=== PATIENT | male | born 1950 | race Caucasian/White ===

== ENCOUNTER 2018-05-08 15:18 | Inpatient (IN) | payer MEDICARE, BC ==
[2018-05-08] MEDS ORDERED: Sodium Chloride 0.9% 10 ML Syringe FLUSH PRN (16:03)
[2018-05-08] MEDS ORDERED: [UNRECOGNIZED DRUG - OTHER] EARBOTH PRN (16:24)
[2018-05-08] MEDS: Sodium Chloride 0.9% 1,000 ML IV SCH (16:36)
[2018-05-08] MEDS: Ketorolac 30 MG/ML SDV IVPUSH PRN (16:36)
[2018-05-08 16:52] LABS: ANION GAP 17.5; CHLORIDE,CL 97 mmol/L (101-111); SODIUM,NA 134 mmol/L (135-145)
[2018-05-08] MEDS: Morphine 2 MG/ML Syringe IVPUSH PRN (19:21)
[2018-05-08] MEDS: Lactulose Soln 10 GM/15 ML 30 ML UD Cup PO SCH (20:33)
--- NOTE | 2018-05-08 21:45 | PCM.HP ---
H&P History of Present Illness - General Date of Service: 05/08/18 Admit Problem/Dx: Admission Diagnosis/Problem Admission Diagnosis/Problem Chest pain on breathing Source of Information: Patient - History of Present Illness Initial Comments - Free Text/Narative: Patient is a 67 year old male admitted due to persistent chest wall pain and ileus. one week ago, patient had a fall in the ice, landed on his left side. supposed to go to ER [facility] but due to long wait, decided to come home to [place] and seen in ER, was noted to have left rib fractures. seen in clinic subsequently, started on pain medication and prophylactic Levaquin. patient then started having right lower quadrant yesterday and noticed too that he has not been having his regular bowel movements, last normal BM was 5 days ago. yesterday, took OTC stool softener and only had 3 small BMs. no melena nor hematochezia. has not been eating well lately as he feels full. no nausea nor vomiting. seen in clinic today. chest ray showed left infltrate and bibasilar pleural effusion. abdomimal xray showed ileus and stools on right side with no signs of bowel obstruction, because of these, was advised admission. Left Back Pain Score (Numeric/FACES): 2 - Related Data Allergies/Adverse Reactions: Allergies Allergy/AdvReac Type Severity Reaction Status Date / Time amoxicillin Allergy Facial Verified 05/04/18 01:02 Swelling Penicillins Allergy Facial Verified 05/04/18 01:02 Swelling tetracycline Allergy Facial Verified 05/08/18 16:14 Swelling Home Medications: Home Meds Multivitamin [Multivitamins] 1 tab PO DAILY 05/04/18 [History] Tamsulosin [Tamsulosin 24 Hr] 0.4 mg PO BEDTIME 05/04/18 [History] atorvaSTATin [Lipitor] 10 mg PO BEDTIME 05/04/18 [History] Cyclobenzaprine [Flexeril] 10 mg PO TID PRN 05/08/18 [History] Hydrocodone/Acetaminophen [Hydrocodon-Acetaminophen 5-325] 2 tab PO Q6HR PRN 07/22 [History] Patient's Own Medication [Ptom] 1 - 2 drop EARBOTH DAILY PRN 05/08/18 [History] Patient's Own Medication [Ptom] 1 tab PO DAILY 05/08/18 [History] levoFLOXacin [Levaquin] 500 mg PO DAILY 05/08/18 [History] Past Medical History HEENT History: Reports: Impaired Vision, Other (See Below) Other HEENT History: chronic sinus congestion Cardiovascular History: Reports: High Cholesterol Genitourinary History: Reports: Prostate Disorder, Other (See Below) Other Genitourinary History: nocturnal frequency Musculoskeletal History: Reports: Fracture, Other (See Below) Other Musculoskeletal History: ribs Endocrine/Metabolic History: Reports: Diabetes, Type II Hematologic History: Reports: Other (See Below) Other Hematologic History: thrombocytopenia - Infectious Disease History Infectious Disease History: Reports: Chicken Pox - Past Surgical History GI Surgical History: Reports: Colonoscopy, Hernia Repair/Other Social & Family History - Family History Family Medical History: Noncontributory - Tobacco Use Smoking Status *Q: Never Smoker Second Hand Smoke Exposure: No - Caffeine Use Caffeine Use: Reports: None - Recreational Drug Use Recreational Drug Use: No H&P Review of Systems - Review of Systems: General: Reports: No Symptoms Pulmonary: Reports: Pleuritic Chest Pain Gastrointestinal: Reports: Abdominal Pain, Constipation, Decreased Appetite Genitourinary: Reports: No Symptoms Musculoskeletal: Reports: No Symptoms Skin: Reports: No Symptoms Exam - Vital Signs Vital Signs: Last Vital Signs Temp 98.8 F 05/08/18 20:13 Pulse 96 05/08/18 20:13 Resp 20 05/08/18 20:13 BP 131/78 05/08/18 20:13 Pulse Ox 97 05/08/18 20:13 Weight: 246 lb - Exam General: Alert, Oriented Lungs: Clear to Auscultation GI/Abdominal Exam: Normal Bowel Sounds, Soft - Patient Data Lab Results Last 24 hrs: Laboratory Results - last 24 hr 05/08/18 05/08/18 Range/Units 16:22 16:22 WBC 11.7 H (5.0-10.0) 10^3/uL RBC 4.64 (4.6-6.2) 10^6/uL Hgb 14.4 (14.0-18.0) g/dL Hct 42.6 (40.0-54.0) % MCV 91.8 (80-100) fL MCH 31.0 (27.0-34.0) pg MCHC 33.8 (33.0-35.0) g/dL Plt Count 142 L (150-450) 10^3/uL Neut % (Auto) 78.3 H (42.2-75.2) % Lymph % (Auto) 6.3 L (20.5-50.1) % [place] % (Auto) 14.2 H (2-8) % Eos % (Auto) 0.9 L (1.0-3.0) % Baso % (Auto) 0.3 (0.0-1.0) % Sodium 134 L (135-145) mmol/L Potassium 4.5 (3.6-5.0) mmol/L Chloride 97 L (101-111) mmol/L Carbon Dioxide 24.0 (21.0-31.0) mmol/L Anion Gap 17.5 BUN 19 H (7-18) mg/dL Creatinine 0.8 (0.6-1.3) mg/dL Est Cr Clr Drug Dosing 112.92 mL/min Estimated GFR (MDRD) > 60 Glucose 128 H (74-105) mg/dL Calcium 9.6 (8.4-10.2) mg/dl Result Diagrams: 05/08/18 16:22 05/08/18 16:22 Problem List Initiated/Reviewed/Updated: Yes Orders Last 24hrs: Active Orders 24 hr Category Date Time Status Patient Status [ADT] Routine ADT 05/08/18 16:04 Active Incentive Spirometry [RT Incentive Spirometry] [RC] Care 05/08/18 16:05 Active Q2HWA Oxygen Therapy [RC] PRN Care 05/08/18 16:04 Active Peripheral IV Care [RC] 09,21 Care 05/08/18 16:05 Active VTE/DVT Education [RC] PER UNIT ROUTINE Care 05/08/18 16:04 Active Vital Signs [RC] Q4H Care 05/08/18 16:04 Active Nothing per Oral Now Diet [DIET] Diet 05/08/18 Dinner Active Cyclobenzaprine [Flexeril] Med 05/08/18 16:24 Active 10 mg PO TID PRN Ketorolac [Toradol] Med 05/08/18 16:14 Active 30 mg IVPUSH Q8H PRN Lactulose [Cephulac] Med 05/08/18 21:00 Active 20 gm PO BID Levofloxacin/Dextrose 5%-Water [Levaquin in D5W 500 MG/ Med 05/09/18 09:00 Active 100 ML] 500 mg Premix Bag 1 bag IV Q24H Morphine Med 05/08/18 18:07 Active 1 mg IVPUSH Q6HR PRN Multivitamins,Therapeutic [Thera] Med 05/09/18 09:00 Active 1 each PO DAILY Patient's Own Medication [Ptom] Med 05/08/18 16:24 Pending DOSE each EARBOTH DAILY PRN Patient's Own Medication [Ptom] Med 05/09/18 09:00 Pending DOSE each PO DAILY Sodium Chloride 0.9% [Normal Saline] 1,000 ml Med 05/08/18 16:15 Active IV ASDIRECTED Sodium Chloride 0.9% [Saline Flush] Med 05/08/18 16:03 Active 10 ml FLUSH ASDIRECTED PRN Tamsulosin [Flomax] Med 05/09/18 09:00 Active 0.4 mg PO DAILY atorvaSTATin [Lipitor] Med 05/09/18 09:00 Active 10 mg PO DAILY Peripheral IV Insertion Adult [OM.PC] Routine Oth 05/08/18 16:03 Ordered Code Status [Resuscitation Status] Routine Resus Stat 05/08/18 16:26 Ordered Medication Orders Atorvastatin Calcium (Lipitor) 10 mg PO DAILY [facility] Cyclobenzaprine HCl (Flexeril) 10 mg PO TID PRN PRN Reason: Muscle Spasm Sodium Chloride (Normal Saline) 1,000 mls @ 125 mls/hr IV ASDIRECTED [facility] Last Admin: 05/08/18 16:36 Dose: 125 mls/hr Levofloxacin/Dextrose 500 mg/ (Premix) 100 mls @ 100 mls/hr IV Q24H [facility] Ketorolac Tromethamine (Toradol) 30 mg IVPUSH Q8H PRN PRN Reason: Pain Stop: 05/13/18 16:14 Last Admin: 05/08/18 16:36 Dose: 30 mg Lactulose (Cephulac) 20 gm PO BID [facility] Last Admin: 05/08/18 20:33 Dose: 20 gm Morphine Sulfate (Morphine) 1 mg IVPUSH Q6HR PRN PRN Reason: Pain Last Admin: 05/08/18 19:21 Dose: 1 mg Multivitamins (Thera) 1 each PO DAILY [facility] Patient Own Medication (Ptom) each PO DAILY [facility] Patient Own Medication (Ptom) each EARBOTH DAILY PRN PRN Reason: Itching Sodium Chloride (Saline Flush) 10 ml FLUSH ASDIRECTED PRN PRN Reason: Keep Vein Open Tamsulosin HCl (Flomax) 0.4 mg PO DAILY [facility] Assessment/Plan Comment:: 1. rib fractures. - no underlying pneumothorax - hydrocodone prescribed outpatient did not help, has not been taking deep breaths. - pain control with IV toradol and IV morphine prn. - incentive spirometry. - change levaquin to IV 2. ileus - NPO - IV fluids : NS 125ml.hr - check BMP and replace electrolytes if needed 3. constipation, - lactulose 4. DVT prophylaxis. - noted slight thrombocytopenia - can still do lovenox and david catalan
[2018-05-09] MEDS: Sodium Chloride 0.9% 1,000 ML IV SCH ×3 (00:08→19:31)
[2018-05-09] MEDS: Morphine 2 MG/ML Syringe IVPUSH PRN ×3 (05:18→19:28)
[2018-05-09] MEDS ORDERED: Patient's Own Medication 1 Each PO SCH (09:00)
[2018-05-09] MEDS: Levofloxacin/Dextrose 5%-Water 500 MG in Premix Bag 1 BAG IV SCH (09:53)
[2018-05-09] MEDS: Cyclobenzaprine 10 MG Tab PO PRN (09:59)
[2018-05-09] MEDS: atorvaSTATin 10 MG Tab PO SCH (10:00)
[2018-05-09] MEDS: Tamsulosin 0.4 MG Cap.ER PO SCH (10:00)
[2018-05-09] MEDS: Multivitamins,Therapeutic Tab PO SCH (10:00)
[2018-05-09] MEDS: Lactulose Soln 10 GM/15 ML 30 ML UD Cup PO SCH (10:00)
[2018-05-09] MEDS: Enoxaparin 40 MG/0.4 ML Syringe SUBCUT SCH (10:01)
[2018-05-09] MEDS: Lidocaine 5% 700 MG Patch TOP SCH (11:38)
[2018-05-09] MEDS ORDERED: Iopamidol 612 MG/ML 100 ML Bottle IVPUSH ONE (13:33)
[2018-05-09] MEDS ORDERED: Morphine 2 MG/ML Syringe IVPUSH ONE (13:40)
--- NOTE | 2018-05-09 15:19 | CT ---
Clinical history: 67-year-old, afebrile 6 foot 5 inch, 246 pound diabetic male with "abdominal distention" who has been on narcotics for left chest (rib fractures) pain. "Normal" CBC. Scan technique: Volume acquisition of data from the abdomen and pelvis obtained without oral contrast but during intravenous infusion 100 cc nonionic Isovue (2 cc/s via injector) while patient was lying supine on the Siemens multi slice scanner [place], [place]. All data archived in the PACS system for storage, reformatting axial/sagittal/coronal planes and study. Interpretation: Abnormal. 1. Several posterior lateral lower left rib fractures with ipsilateral dependent small left pleural effusion and underlying posterior segment left lower lobe atelectasis or infiltrate. Asymmetric elevation right hemidiaphragm (splinting) and underlying atelectasis. 2. Abnormal small bowel pattern i.e. generalized dilatation all of the small bowel loops with scattered differential air-fluid levels and abnormal distention of the stool filled right colon. (Transverse and descending left colon unremarkable; sigmoid diverticulosis) Differential considerations include severe (narcotic-induced) ileus versus mechanical bowel obstruction. 3. Gallbladder distended but without intraluminal stones. Liver, stomach (NG tube), spleen, pancreas, right adrenal gland and kidneys unremarkable (16 mm diameter left adrenal cyst). Prostate gland and seminal vesicles unremarkable. 4. Free intraperitoneal ascitic fluid collected in the dependent pelvis, RLQ, and paracolic gutter behind the colon, on the right. 5. L5 anterolisthesis and signs of chronic severe L5-S1 disc disease. Scattered atheromatous calcifications normal caliber aorta. 6 no pelvic or abdominal mass lesion, mesenteric or retroperitoneal lymphadenopathy, or free intraperitoneal air. CONCLUSION: Abnormal small bowel pattern (see above). Left rib fractures, underlying pleural effusion and bilateral lower lobe atelectasis. Stool concentrated in the right colon. Small volume ascites. Sigmoid diverticulosis.
--- NOTE | 2018-05-09 16:07 | PCM.PN ---
- General Info Date of Service: 05/09/18 Subjective Update: patient has a soft stool this morning. Still feels full in the belly, noticed the distention today. Denies any nausea. Passing gas. No fever. Whenever he sits up, left-sided chest pain still gets aggravated, morphine works better to the Toradol. Occasional right lower quadrant pain as well. - Patient Data Vitals - Most Recent: Last Vital Signs Temp 98.5 F 05/09/18 11:27 Pulse 96 05/09/18 11:27 Resp 18 05/09/18 11:27 BP 138/73 05/09/18 11:27 Pulse Ox 95 05/09/18 11:27 Weight - Most Recent: 246 lb I&O - Last 24 Hours: Intake & Output 05/09/18 05/09/18 05/09/18 06:59 14:59 22:59 Intake Total 926 405 Output Total 275 Balance 651 405 Lab Results Last 24 Hours: Laboratory Results - last 24 hr 05/08/18 05/08/18 Range/Units 16:22 16:22 WBC 11.7 H (5.0-10.0) 10^3/uL RBC 4.64 (4.6-6.2) 10^6/uL Hgb 14.4 (14.0-18.0) g/dL Hct 42.6 (40.0-54.0) % MCV 91.8 (80-100) fL MCH 31.0 (27.0-34.0) pg MCHC 33.8 (33.0-35.0) g/dL Plt Count 142 L (150-450) 10^3/uL Neut % (Auto) 78.3 H (42.2-75.2) % Lymph % (Auto) 6.3 L (20.5-50.1) % [place] % (Auto) 14.2 H (2-8) % Eos % (Auto) 0.9 L (1.0-3.0) % Baso % (Auto) 0.3 (0.0-1.0) % Sodium 134 L (135-145) mmol/L Potassium 4.5 (3.6-5.0) mmol/L Chloride 97 L (101-111) mmol/L Carbon Dioxide 24.0 (21.0-31.0) mmol/L Anion Gap 17.5 BUN 19 H (7-18) mg/dL Creatinine 0.8 (0.6-1.3) mg/dL Est Cr Clr Drug Dosing 112.92 mL/min Estimated GFR (MDRD) > 60 Glucose 128 H (74-105) mg/dL Calcium 9.6 (8.4-10.2) mg/dl Med Orders - Current: Current Medications Atorvastatin Calcium (Lipitor) 10 mg PO DAILY [facility] Last Admin: 05/09/18 10:00 Dose: 10 mg Cyclobenzaprine HCl (Flexeril) 10 mg PO TID PRN PRN Reason: Muscle Spasm Last Admin: 05/09/18 09:59 Dose: 10 mg Enoxaparin Sodium (Lovenox) 40 mg SUBCUT DAILY [facility] Last Admin: 05/09/18 10:01 Dose: 40 mg Sodium Chloride (Normal Saline) 1,000 mls @ 125 mls/hr IV ASDIRECTED [facility] Last Admin: 05/09/18 07:49 Dose: 125 mls/hr Levofloxacin/Dextrose 500 mg/ (Premix) 100 mls @ 100 mls/hr IV Q24H [facility] Last Admin: 05/09/18 09:53 Dose: 100 mls/hr Ketorolac Tromethamine (Toradol) 30 mg IVPUSH Q8H PRN PRN Reason: Pain Stop: 05/13/18 16:14 Last Admin: 05/08/18 16:36 Dose: 30 mg Lidocaine (Lidoderm 5%) 700 mg TOP Q24H [facility] Last Admin: 05/09/18 11:38 Dose: 700 mg Miscellaneous Information (Remove Patch) 0 ea TRDERM Q12H [facility] Morphine Sulfate (Morphine) 1 mg IVPUSH Q6HR PRN PRN Reason: Pain Last Admin: 05/09/18 11:29 Dose: 1 mg Multivitamins (Thera) 1 each PO DAILY [facility] Last Admin: 05/09/18 10:00 Dose: 1 each Senna/Docusate Sodium (Senna Plus) 1 tab PO BID PRN PRN Reason: Constipation Sodium Chloride (Saline Flush) 10 ml FLUSH ASDIRECTED PRN PRN Reason: Keep Vein Open Tamsulosin HCl (Flomax) 0.4 mg PO DAILY [facility] Last Admin: 05/09/18 10:00 Dose: 0.4 mg Discontinued Medications Iopamidol (Isovue-300 (61%)) 100 ml IVPUSH ONETIME ONE Stop: 05/09/18 13:34 Last Admin: 05/09/18 14:10 Dose: 100 ml Lactulose (Cephulac) 20 gm PO BID [facility] Last Admin: 05/09/18 10:00 Dose: 20 gm Morphine Sulfate (Morphine) 1 mg IVPUSH ONETIME ONE Stop: 05/09/18 13:41 Last Admin: 05/09/18 13:53 Dose: 1 mg Patient Own Medication (Ptom) each PO DAILY [facility] Acetic Acid- Hydrocortisone Otic Solution *Own Med* 0 each EARBOTH DAILY PRN PRN Reason: Itching - Exam General: Alert, Oriented Lungs: Clear to Auscultation, Normal Respiratory Effort Cardiovascular: Regular Rate, Regular Rhythm GI/Abdominal Exam: Soft, Other (bowel sounds heard in all 4 quadrants) - My Orders Last 24 Hours: My Active Orders 05/08/18 16:03 Sodium Chloride 0.9% [Saline Flush] 10 ml FLUSH ASDIRECTED PRN Peripheral IV Insertion Adult [OM.PC] Routine 05/08/18 16:04 Patient Status [ADT] Routine Oxygen Therapy [RC] PRN VTE/DVT Education [RC] PER UNIT ROUTINE Vital Signs [RC] Q4H 05/08/18 16:05 Incentive Spirometry [RT Incentive Spirometry] [RC] Q2HWA Peripheral IV Care [RC] 09,21 05/08/18 16:14 Ketorolac [Toradol] 30 mg IVPUSH Q8H PRN 05/08/18 16:15 Sodium Chloride 0.9% [Normal Saline] 1,000 ml IV ASDIRECTED 05/08/18 16:24 Cyclobenzaprine [Flexeril] 10 mg PO TID PRN 05/08/18 16:26 Code Status [Resuscitation Status] Routine 05/08/18 18:07 Morphine 1 mg IVPUSH Q6HR PRN 05/08/18 21:51 DAVID Hose [Antiembolic Hose] [OM.PC] Routine 05/08/18 Dinner Nothing per Oral Now Diet [DIET] 05/09/18 09:00 Enoxaparin [Lovenox] 40 mg SUBCUT DAILY Levofloxacin/Dextrose 5%-Water [Levaquin in D5W 500 MG/100 ML] 500 mg Premix Bag 1 bag IV Q24H Multivitamins,Therapeutic [Thera] 1 each PO DAILY Tamsulosin [Flomax] 0.4 mg PO DAILY atorvaSTATin [Lipitor] 10 mg PO DAILY 05/09/18 10:00 Lidocaine 5% [Lidoderm 5%] 700 mg TOP Q24H 05/09/18 13:13 Communication Order [RC] ROUTINE 05/09/18 14:25 Nasogastric Orogastric Tube Insertion [OM.PC] Routine 05/09/18 15:15 Docusate Sodium/Sennosides [Senna Plus] 1 tab PO BID PRN 05/09/18 22:00 Remove Patch 0 ea TRDERM Q12H - Plan Plan:: 1. left-sided rib fractures with underlying left-sided infiltrates - no underlying pneumothorax - hydrocodone prescribed outpatient did not help, has not been taking deep breaths. - pain control with IV toradol and IV morphine prn. - incentive spirometry. - continueIV Levaquin 2. abdominal distention -CAT scan showing mechanical bowel obstruction, labs done, electrolytes normal range, no fever. - NGT inserted - keep nothing by mouth -Normal saline 125 ml per hour - measure abdominal girth every shift 4. DVT prophylaxis.- can still do lovenox and david hose
[2018-05-09] MEDS ORDERED: Pantoprazole 40 MG in Sodium Chloride 0.9% 100 ML IV ONE (16:22)
[2018-05-10] MEDS: Morphine 2 MG/ML Syringe IVPUSH PRN ×3 (03:35→21:54)
[2018-05-10] MEDS: Sodium Chloride 0.9% 1,000 ML IV SCH ×3 (03:37→21:20)
[2018-05-10 06:42] LABS: ANION GAP 14.9; CHLORIDE,CL 103 mmol/L (101-111); SODIUM,NA 136 mmol/L (135-145)
[2018-05-10] MEDS: Levofloxacin/Dextrose 5%-Water 500 MG in Premix Bag 1 BAG IV SCH (09:32)
[2018-05-10] MEDS: Pantoprazole 40 MG Vial IVPUSH SCH (09:35)
[2018-05-10] MEDS: Cyclobenzaprine 10 MG Tab PO PRN (09:38)
[2018-05-10] MEDS: atorvaSTATin 10 MG Tab PO SCH (09:38)
[2018-05-10] MEDS: Multivitamins,Therapeutic Tab PO SCH (09:38)
[2018-05-10] MEDS: Enoxaparin 40 MG/0.4 ML Syringe SUBCUT SCH (09:38)
[2018-05-10] MEDS: Tamsulosin 0.4 MG Cap.ER PO SCH (09:38)
[2018-05-10] MEDS: Lidocaine 5% 700 MG Patch TOP SCH (10:29)
--- NOTE | 2018-05-10 11:51 | PN ---
DATE: 05/10/2018 SUBJECTIVE: The patient is a 67-year-old gentleman admitted with right lower quadrant pain and left-sided rib fractures, and hospital course is complicated by abdominal distention and possibly ileus induced by the pain medication. The patient is currently on NG tube. This morning, he is feeling slightly better with his abdominal distention, and he had passed some loose stool x6. Otherwise, he denies any chest pain or shortness of breath. LABORATORY DATA: Lab workup this morning: Chem-6: Glucose is 118, BUN is 20. The rest of the panel is unremarkable. OBJECTIVE: Vital Signs: Blood pressure is 139/89, pulse of 92, respirations 20, temperature of 99.6, and saturation is 96% on room air. Heart: Regular rate and rhythm. Lungs: Diminished breath sounds on both bases, but no significant crackles. No wheezing. Abdomen: Still distended but soft. Bowel sounds are hypoactive. Extremities: Negative for any significant pedal edema. No calf tenderness. MEDICATIONS: Reviewed. PLAN: We will continue with his current regimen including the IV Levaquin. He is also still on morphine IV. We will also continue with Protonix; and we will continue with the NG tube, but we will clamp it for about 4 hours; and we will increase his ambulation. [facility] /[id number]
[2018-05-11] MEDS: Cyclobenzaprine 10 MG Tab PO PRN (01:31)
[2018-05-11] MEDS: Sodium Chloride 0.9% 1,000 ML IV SCH ×3 (05:15→23:07)
[2018-05-11] MEDS: Levofloxacin/Dextrose 5%-Water 500 MG in Premix Bag 1 BAG IV SCH (09:35)
[2018-05-11] MEDS: Multivitamins,Therapeutic Tab PO SCH (09:36)
[2018-05-11] MEDS: Lidocaine 5% 700 MG Patch TOP SCH (09:36)
[2018-05-11] MEDS: Tamsulosin 0.4 MG Cap.ER PO SCH (09:36)
[2018-05-11] MEDS: Enoxaparin 40 MG/0.4 ML Syringe SUBCUT SCH (09:36)
[2018-05-11] MEDS: Pantoprazole 40 MG Vial IVPUSH SCH (09:36)
[2018-05-11] MEDS: atorvaSTATin 10 MG Tab PO SCH (09:36)
--- NOTE | 2018-05-11 11:59 | PN ---
DATE: 05/11/2018 SUBJECTIVE: The patient has been doing fairly well. We did clamp his NG tube yesterday for 4 hours, and he tolerated it well. We did restart it again, and we only got 150 residual. Overnight, his NG tube was clamped again. This morning, he is doing well. He has been passing his gas and loose stool, and so far, he has not had any problems with abdominal distention. He still complains of some left-sided rib cage pain, but denies any other complaints. No headache, shortness of breath, nor any other complaints. OBJECTIVE: Vital Signs: Blood pressure is 134/79, pulse 84, respirations 20, temperature of 99.7, and saturations 97%. Heart: Regular rate and rhythm. Normal S1 and S2. No gallops. No rubs. Lungs: Equal bilaterally. No crackles. No wheezing. Abdomen: Still slightly distended, but soft and nontender. Bowel sounds positive. Extremities: Negative for any pedal edema. No calf tenderness. PLAN: We will discontinue the NG tube. We will start him on a clear liquid diet. We will continue with the rest of his management and continue with his activity. [facility] /[id number]
[2018-05-11] MEDS: Morphine 2 MG/ML Syringe IVPUSH PRN (13:40)
[2018-05-12] MEDS: Morphine 2 MG/ML Syringe IVPUSH PRN (03:17)
[2018-05-12] MEDS: Sodium Chloride 0.9% 1,000 ML IV SCH (07:53)
[2018-05-12] MEDS: Ketorolac 30 MG/ML SDV IVPUSH PRN (07:58)
[2018-05-12] MEDS: Pantoprazole 40 MG Vial IVPUSH SCH (08:06)
[2018-05-12] MEDS: Enoxaparin 40 MG/0.4 ML Syringe SUBCUT SCH (09:24)
[2018-05-12] MEDS: Tamsulosin 0.4 MG Cap.ER PO SCH (09:24)
[2018-05-12] MEDS: Multivitamins,Therapeutic Tab PO SCH (09:24)
[2018-05-12] MEDS: atorvaSTATin 10 MG Tab PO SCH (09:24)
[2018-05-12] MEDS: Lidocaine 5% 700 MG Patch TOP SCH (09:24)
[2018-05-12] MEDS: Levofloxacin/Dextrose 5%-Water 500 MG in Premix Bag 1 BAG IV SCH (09:24)
--- NOTE | 2018-05-12 11:55 | PCM.PN ---
- General Info Date of Service: 05/12/18 Admission Dx/Problem (Free Text): Admission Diagnosis/Problem Admission Diagnosis/Problem Chest pain on breathing Subjective Update: Pt seen and examined at the bedside this morning NG tube out Tolerating clear liquid diet no abdominal pain, no nausea, no vomiting having multiple bowel movements, semisolid Patient has no new complaints this morning - Review of Systems General: Reports: No Symptoms HEENT: Reports: No Symptoms Pulmonary: Reports: No Symptoms Cardiovascular: Reports: No Symptoms Gastrointestinal: Denies: Abdominal Pain, Nausea, Vomiting Genitourinary: Reports: No Symptoms Musculoskeletal: Reports: No Symptoms - Patient Data Vitals - Most Recent: Last Vital Signs Temp 37.2 C 05/12/18 07:56 Pulse 78 05/12/18 07:56 Resp 20 05/12/18 07:56 BP 131/86 05/12/18 07:56 Pulse Ox 96 05/12/18 07:56 Weight - Most Recent: 111.584 kg I&O - Last 24 Hours: Intake & Output 05/11/18 05/12/18 05/12/18 22:59 06:59 14:59 Intake Total 390 1245 720 Output Total 200 Balance 190 1245 720 Med Orders - Current: Current Medications Atorvastatin Calcium (Lipitor) 10 mg PO DAILY [facility] Last Admin: 05/12/18 09:24 Dose: 10 mg Cyclobenzaprine HCl (Flexeril) 10 mg PO TID PRN PRN Reason: Muscle Spasm Last Admin: 05/11/18 01:31 Dose: 10 mg Enoxaparin Sodium (Lovenox) 40 mg SUBCUT DAILY [facility] Last Admin: 05/12/18 09:24 Dose: 40 mg Ketorolac Tromethamine (Toradol) 30 mg IVPUSH Q8H PRN PRN Reason: Pain Stop: 05/13/18 16:14 Last Admin: 05/12/18 07:58 Dose: 30 mg Lidocaine (Lidoderm 5%) 700 mg TOP Q24H [facility] Last Admin: 05/12/18 09:24 Dose: 700 mg Miscellaneous Information (Remove Patch) 0 ea TRDERM Q12H [facility] Last Admin: 05/12/18 09:25 Dose: Not Given Morphine Sulfate (Morphine) 1 mg IVPUSH Q6HR PRN PRN Reason: Pain Last Admin: 05/12/18 03:17 Dose: 1 mg Multivitamins (Thera) 1 each PO DAILY [facility] Last Admin: 05/12/18 09:24 Dose: 1 each Pantoprazole Sodium (Protonix Iv) 40 mg IVPUSH DAILY [facility] Last Admin: 05/12/18 08:06 Dose: 40 mg Senna/Docusate Sodium (Senna Plus) 1 tab PO BID PRN PRN Reason: Constipation Senna/Docusate Sodium (Senna Plus) 1 tab PO BID [facility] Sodium Chloride (Saline Flush) 10 ml FLUSH ASDIRECTED PRN PRN Reason: Keep Vein Open Tamsulosin HCl (Flomax) 0.4 mg PO DAILY [facility] Last Admin: 05/12/18 09:24 Dose: 0.4 mg Discontinued Medications Sodium Chloride (Normal Saline) 1,000 mls @ 125 mls/hr IV ASDIRECTED [facility] Last Admin: 05/12/18 07:53 Dose: 125 mls/hr Levofloxacin/Dextrose 500 mg/ (Premix) 100 mls @ 100 mls/hr IV Q24H [facility] Last Admin: 05/12/18 09:24 Dose: 100 mls/hr Pantoprazole Sodium 40 mg/ (Sodium Chloride) 100 mls @ 200 mls/hr IV ONETIME ONE Stop: 05/09/18 16:51 Last Admin: 05/09/18 16:54 Dose: 200 mls/hr Iopamidol (Isovue-300 (61%)) 100 ml IVPUSH ONETIME ONE Stop: 05/09/18 13:34 Last Admin: 05/09/18 14:10 Dose: 100 ml Lactulose (Cephulac) 20 gm PO BID [facility] Last Admin: 05/09/18 10:00 Dose: 20 gm Morphine Sulfate (Morphine) 1 mg IVPUSH ONETIME ONE Stop: 05/09/18 13:41 Last Admin: 05/09/18 13:53 Dose: 1 mg Patient Own Medication (Ptom) each PO DAILY [facility] Acetic Acid- Hydrocortisone Otic Solution *Own Med* 0 each EARBOTH DAILY PRN PRN Reason: Itching - Exam General: Alert, Oriented HEENT: Pupils Equal Neck: Supple Lungs: Clear to Auscultation Cardiovascular: Regular Rate, Regular Rhythm GI/Abdominal Exam: Normal Bowel Sounds, Soft, Non-Tender Extremities: Normal Inspection, Normal Range of Motion Skin: Warm, Dry, Intact - Problem List Review Problem List Initiated/Reviewed/Updated: Yes - My Orders Last 24 Hours: My Active Orders 05/12/18 21:00 Docusate Sodium/Sennosides [Senna Plus] 1 tab PO BID 05/12/18 Lunch Regular Diet [DIET] - Plan Plan:: 1. intestinal obstruction - improving - can advance to Regular Diet As Tolerated - continue when necessary Zofran, pain management 2. rib fracture - stable - continue pain medication as needed 3. DVT prophylaxis - can still do lovenox and david catalan
[2018-05-12] MEDS ORDERED: Acetaminophen 325 MG Tab PO PRN (19:28)
[2018-05-12] MEDS: traMADol 50 MG Tab PO PRN (19:37)
[2018-05-12] MEDS: Cyclobenzaprine 10 MG Tab PO PRN (19:38)
[2018-05-13] MEDS: traMADol 50 MG Tab PO PRN ×2 (06:16→14:24)
[2018-05-13] MEDS: Pantoprazole 40 MG Vial IVPUSH SCH (09:30)
[2018-05-13] MEDS ORDERED: Magnesium Citrate Solution 296 ML Bottle PO ONE (09:44)
[2018-05-13] MEDS: Polyethylene Glycol 3350 Powder 17 GM Packet PO SCH (10:11)
[2018-05-13] MEDS: Lidocaine 5% 700 MG Patch TOP SCH (10:11)
[2018-05-13] MEDS: Tamsulosin 0.4 MG Cap.ER PO SCH (10:15)
[2018-05-13] MEDS: Multivitamins,Therapeutic Tab PO SCH (10:15)
[2018-05-13] MEDS: Enoxaparin 40 MG/0.4 ML Syringe SUBCUT SCH (10:17)
[2018-05-13] MEDS: Cyclobenzaprine 10 MG Tab PO PRN (10:24)
[2018-05-13] MEDS: atorvaSTATin 10 MG Tab PO SCH (10:24)
--- NOTE | 2018-05-13 13:24 | PCM.PN ---
- General Info Date of Service: 05/13/18 Admission Dx/Problem (Free Text): Admission Diagnosis/Problem Admission Diagnosis/Problem Chest pain on breathing Subjective Update: Pt seen and examined at the bedside this morning Tolerating regular diet no abdominal pain, no nausea, no vomiting had a bowel movement last night, small quantity complains of abdominal fullness/mild distension - Review of Systems General: Reports: No Symptoms HEENT: Reports: No Symptoms Pulmonary: Reports: No Symptoms Cardiovascular: Reports: No Symptoms Gastrointestinal: Reports: Other (mild distension, fullness) Genitourinary: Reports: No Symptoms, Urgency Musculoskeletal: Reports: No Symptoms - Patient Data Vitals - Most Recent: Last Vital Signs Temp 37.1 C 05/13/18 12:00 Pulse 80 05/13/18 12:00 Resp 20 05/13/18 12:00 BP 136/80 05/13/18 12:00 Pulse Ox 97 05/13/18 12:00 Weight - Most Recent: 111.584 kg I&O - Last 24 Hours: Intake & Output 05/12/18 05/13/18 05/13/18 22:59 06:59 14:59 Intake Total 520 350 Balance 520 350 Med Orders - Current: Current Medications Acetaminophen (Tylenol) 650 mg PO Q4H PRN PRN Reason: Pain Last Admin: 05/12/18 21:59 Dose: 650 mg Atorvastatin Calcium (Lipitor) 10 mg PO DAILY [facility] Last Admin: 05/13/18 10:24 Dose: 10 mg Cyclobenzaprine HCl (Flexeril) 10 mg PO TID PRN PRN Reason: Muscle Spasm Last Admin: 05/13/18 10:24 Dose: 10 mg Enoxaparin Sodium (Lovenox) 40 mg SUBCUT DAILY [facility] Last Admin: 05/13/18 10:17 Dose: 40 mg Ketorolac Tromethamine (Toradol) 30 mg IVPUSH Q8H PRN PRN Reason: Pain Stop: 05/13/18 16:14 Last Admin: 05/12/18 07:58 Dose: 30 mg Lidocaine (Lidoderm 5%) 700 mg TOP Q24H [facility] Last Admin: 05/13/18 10:11 Dose: 700 mg Miscellaneous Information (Remove Patch) 0 ea TRDERM Q12H [facility] Last Admin: 05/13/18 13:03 Dose: Not Given Morphine Sulfate (Morphine) 1 mg IVPUSH Q6HR PRN PRN Reason: Pain Last Admin: 05/12/18 03:17 Dose: 1 mg Multivitamins (Thera) 1 each PO DAILY [facility] Last Admin: 05/13/18 10:15 Dose: 1 each Pantoprazole Sodium (Protonix Iv) 40 mg IVPUSH DAILY [facility] Last Admin: 05/12/18 08:06 Dose: 40 mg Polyethylene Glycol (Miralax) 17 gm PO DAILY [facility] Last Admin: 05/13/18 10:11 Dose: 17 gm Senna/Docusate Sodium (Senna Plus) 1 tab PO BID PRN PRN Reason: Constipation Senna/Docusate Sodium (Senna Plus) 1 tab PO BID [facility] Last Admin: 05/13/18 10:14 Dose: 1 tab Sodium Chloride (Saline Flush) 10 ml FLUSH ASDIRECTED PRN PRN Reason: Keep Vein Open Tamsulosin HCl (Flomax) 0.4 mg PO DAILY [facility] Last Admin: 05/13/18 10:15 Dose: 0.4 mg Tramadol HCl (Ultram) 50 mg PO Q6H PRN PRN Reason: Pain Last Admin: 05/13/18 06:16 Dose: 50 mg Discontinued Medications Sodium Chloride (Normal Saline) 1,000 mls @ 125 mls/hr IV ASDIRECTED [facility] Last Admin: 05/12/18 07:53 Dose: 125 mls/hr Levofloxacin/Dextrose 500 mg/ (Premix) 100 mls @ 100 mls/hr IV Q24H [facility] Last Admin: 05/12/18 09:24 Dose: 100 mls/hr Pantoprazole Sodium 40 mg/ (Sodium Chloride) 100 mls @ 200 mls/hr IV ONETIME ONE Stop: 05/09/18 16:51 Last Admin: 05/09/18 16:54 Dose: 200 mls/hr Iopamidol (Isovue-300 (61%)) 100 ml IVPUSH ONETIME ONE Stop: 05/09/18 13:34 Last Admin: 05/09/18 14:10 Dose: 100 ml Lactulose (Cephulac) 20 gm PO BID [facility] Last Admin: 05/09/18 10:00 Dose: 20 gm Magnesium Citrate (Citrate Of Magnesia) 296 ml PO ONETIME ONE Stop: 05/13/18 09:45 Last Admin: 05/13/18 10:11 Dose: 296 ml Morphine Sulfate (Morphine) 1 mg IVPUSH ONETIME ONE Stop: 05/09/18 13:41 Last Admin: 05/09/18 13:53 Dose: 1 mg Patient Own Medication (Ptom) each PO DAILY [facility] Acetic Acid- Hydrocortisone Otic Solution *Own Med* 0 each EARBOTH DAILY PRN PRN Reason: Itching - Exam General: Alert, Oriented HEENT: Pupils Equal, Pupils Reactive Lungs: Clear to Auscultation, Normal Respiratory Effort Cardiovascular: Regular Rate, Regular Rhythm GI/Abdominal Exam: Normal Bowel Sounds, Soft, Non-Tender - Problem List Review Problem List Initiated/Reviewed/Updated: Yes - My Orders Last 24 Hours: My Active Orders 05/12/18 19:26 traMADol [Ultram] 50 mg PO Q6H PRN 05/12/18 19:28 Acetaminophen [Tylenol] 650 mg PO Q4H PRN 05/12/18 21:00 Docusate Sodium/Sennosides [Senna Plus] 1 tab PO BID 05/13/18 09:45 Polyethylene Glycol 3350 [MiraLAX] 17 gm PO DAILY 05/13/18 11:43 Abdomen 1V Flat [CR] Routine - Plan Plan:: 1. intestinal obstruction, likely resolved - however patient still has some abdominal fullness/mild distension - check abdominal x ray today - continue regular diet 2. rib fracture - stable - continue tylenol/tramadol pain regimen 3. DVT prophylaxis - can still do lovenox and david hose
--- NOTE | 2018-05-13 14:05 | CR ---
Clinical history: 67-year-old diabetic male with abdominal distention. Interpretation: Abnormal. *Flat and upright films of the abdomen (x4) confirm generalized dilatation of small intestine with multiple differential air-fluid levels typical of mechanical bowel obstruction (absence of gas in the colon or rectum). No foreign body or abdominal soft tissue mass lesion. Asymmetric elevation right hemidiaphragm and apparent bibasilar pleural effusions. Gas in the gastric fundus. No free subdiaphragmatic air. Conclusion: High-grade mechanical SBO. Note: This pattern not typical of diabetic or narcotic-induced "ileus".
[2018-05-13] MEDS ORDERED: Iopamidol 612 MG/ML 100 ML Bottle IVPUSH ONE (21:13)
[2018-05-14] MEDS: Dextrose 5%-0.9% NaCl 1,000 ML IV SCH ×3 (00:19→16:57)
[2018-05-14] MEDS: Pantoprazole 40 MG Vial IVPUSH SCH ×2 (04:57→09:54)
[2018-05-14] MEDS: Polyethylene Glycol 3350 Powder 17 GM Packet PO SCH (09:53)
[2018-05-14] MEDS: atorvaSTATin 10 MG Tab PO SCH (09:53)
[2018-05-14] MEDS: Tamsulosin 0.4 MG Cap.ER PO SCH (09:53)
[2018-05-14] MEDS: Lidocaine 5% 700 MG Patch TOP SCH (09:54)
[2018-05-14] MEDS: Enoxaparin 40 MG/0.4 ML Syringe SUBCUT SCH (09:54)
[2018-05-14] MEDS: Multivitamins,Therapeutic Tab PO SCH (09:54)
[2018-05-14] MEDS ORDERED: Methylnaltrexone 12 MG/0.6 ML SDV SUBCUT ONE (10:00)
[2018-05-14 10:13] LABS: ANION GAP 15.4; CHLORIDE,CL 101 mmol/L (101-111); SODIUM,NA 136 mmol/L (135-145)
[2018-05-14] MEDS ORDERED: Potassium Chloride 20 MEQ in Premix Bag 1 BAG IV ONE (10:28)
--- NOTE | 2018-05-14 11:14 | PCM.PN ---
- General Info Date of Service: 05/14/18 Admission Dx/Problem (Free Text): Admission Diagnosis/Problem Admission Diagnosis/Problem Chest pain on breathing Subjective Update: Pt seen and examined at the bedside this morning Yesterday, repeat imaging showed persistent obstruction and dilated loops of bowel. Patient also complained of some abdominal discomfort in the evening and NG tube was placed and connected to low intermittent suction. This morning, patient feels better with relief of abdominal discomfort. No nausea and vomiting Functional Status: Reports: Pain Controlled - Review of Systems General: Reports: No Symptoms HEENT: Reports: No Symptoms Pulmonary: Reports: No Symptoms Cardiovascular: Reports: No Symptoms Gastrointestinal: Reports: Constipation Genitourinary: Reports: No Symptoms - Patient Data Vitals - Most Recent: Last Vital Signs Temp 37.6 C 05/14/18 08:17 Pulse 77 05/14/18 08:17 Resp 20 05/14/18 08:17 BP 141/88 H 05/14/18 08:17 Pulse Ox 96 05/14/18 08:17 Weight - Most Recent: 111.584 kg I&O - Last 24 Hours: Intake & Output 05/13/18 05/14/18 05/14/18 22:59 06:59 14:59 Intake Total 220 Output Total 300 Balance 220 -300 Lab Results Last 24 Hours: Laboratory Results - last 24 hr 05/14/18 Range/Units 09:45 Sodium 136 (135-145) mmol/L Potassium 3.4 L (3.6-5.0) mmol/L Chloride 101 (101-111) mmol/L Carbon Dioxide 23.0 (21.0-31.0) mmol/L Anion Gap 15.4 BUN 9 (7-18) mg/dL Creatinine 0.7 (0.6-1.3) mg/dL Est Cr Clr Drug Dosing 129.05 mL/min Estimated GFR (MDRD) > 60 Glucose 151 H (74-105) mg/dL Calcium 8.1 L (8.4-10.2) mg/dl Magnesium 1.9 (1.8-2.5) mg/dL Med Orders - Current: Current Medications Acetaminophen (Tylenol) 650 mg PO Q4H PRN PRN Reason: Pain Last Admin: 05/12/18 21:59 Dose: 650 mg Atorvastatin Calcium (Lipitor) 10 mg PO DAILY [facility] Last Admin: 05/14/18 09:53 Dose: Not Given Cyclobenzaprine HCl (Flexeril) 10 mg PO TID PRN PRN Reason: Muscle Spasm Last Admin: 05/13/18 10:24 Dose: 10 mg Enoxaparin Sodium (Lovenox) 40 mg SUBCUT DAILY [facility] Last Admin: 05/14/18 09:54 Dose: 40 mg Dextrose/Sodium Chloride (Dextrose 5%-Normal Saline) 1,000 mls @ 125 mls/hr IV ASDIRECTED [facility] Last Admin: 05/14/18 08:38 Dose: 125 mls/hr Potassium Chloride 20 meq/ (Premix) 100 mls @ 50 mls/hr IV ONETIME ONE Stop: 05/14/18 12:27 Lidocaine (Lidoderm 5%) 700 mg TOP Q24H [facility] Last Admin: 05/14/18 09:54 Dose: 700 mg Miscellaneous Information (Remove Patch) 0 ea TRDERM Q12H [facility] Last Admin: 05/13/18 21:48 Dose: Not Given Morphine Sulfate (Morphine) 1 mg IVPUSH Q6HR PRN PRN Reason: Pain Last Admin: 05/12/18 03:17 Dose: 1 mg Multivitamins (Thera) 1 each PO DAILY [facility] Last Admin: 05/14/18 09:54 Dose: Not Given Pantoprazole Sodium (Protonix Iv) 40 mg IVPUSH DAILY [facility] Last Admin: 05/14/18 09:54 Dose: Not Given Polyethylene Glycol (Miralax) 17 gm PO DAILY [facility] Last Admin: 05/14/18 09:53 Dose: Not Given Senna/Docusate Sodium (Senna Plus) 1 tab PO BID PRN PRN Reason: Constipation Senna/Docusate Sodium (Senna Plus) 1 tab PO BID [facility] Last Admin: 05/14/18 09:54 Dose: Not Given Sodium Chloride (Saline Flush) 10 ml FLUSH ASDIRECTED PRN PRN Reason: Keep Vein Open Tamsulosin HCl (Flomax) 0.4 mg PO DAILY [facility] Last Admin: 05/14/18 09:53 Dose: Not Given Tramadol HCl (Ultram) 50 mg PO Q6H PRN PRN Reason: Pain Last Admin: 05/13/18 14:24 Dose: 50 mg Discontinued Medications Sodium Chloride (Normal Saline) 1,000 mls @ 125 mls/hr IV ASDIRECTED [facility] Last Admin: 05/12/18 07:53 Dose: 125 mls/hr Levofloxacin/Dextrose 500 mg/ (Premix) 100 mls @ 100 mls/hr IV Q24H [facility] Last Admin: 05/12/18 09:24 Dose: 100 mls/hr Pantoprazole Sodium 40 mg/ (Sodium Chloride) 100 mls @ 200 mls/hr IV ONETIME ONE Stop: 05/09/18 16:51 Last Admin: 05/09/18 16:54 Dose: 200 mls/hr Iopamidol (Isovue-300 (61%)) 100 ml IVPUSH ONETIME ONE Stop: 05/09/18 13:34 Last Admin: 05/09/18 14:10 Dose: 100 ml Iopamidol (Isovue-300 (61%)) 100 ml IVPUSH ONETIME ONE Stop: 05/13/18 21:14 Last Admin: 05/13/18 21:27 Dose: 100 ml Ketorolac Tromethamine (Toradol) 30 mg IVPUSH Q8H PRN PRN Reason: Pain Stop: 05/13/18 16:14 Last Admin: 05/12/18 07:58 Dose: 30 mg Lactulose (Cephulac) 20 gm PO BID [facility] Last Admin: 05/09/18 10:00 Dose: 20 gm Magnesium Citrate (Citrate Of Magnesia) 296 ml PO ONETIME ONE Stop: 05/13/18 09:45 Last Admin: 05/13/18 10:11 Dose: 296 ml Methylnaltrexone [place] (Relistor) 12 mg SUBCUT ONETIME ONE Stop: 05/14/18 10:01 Last Admin: 05/14/18 09:57 Dose: 12 mg Morphine Sulfate (Morphine) 1 mg IVPUSH ONETIME ONE Stop: 05/09/18 13:41 Last Admin: 05/09/18 13:53 Dose: 1 mg Patient Own Medication (Ptom) each PO DAILY [facility] Acetic Acid- Hydrocortisone Otic Solution *Own Med* 0 each EARBOTH DAILY PRN PRN Reason: Itching - Exam General: Alert, Oriented HEENT: Pupils Equal, Pupils Reactive Neck: Supple Lungs: Clear to Auscultation Cardiovascular: Regular Rate, Regular Rhythm GI/Abdominal Exam: Abnormal Bowel Sounds - Problem List Review Problem List Initiated/Reviewed/Updated: Yes - My Orders Last 24 Hours: My Active Orders 05/13/18 23:45 Dextrose 5%-0.9% NaCl [Dextrose 5%-Normal Saline] 1,000 ml IV ASDIRECTED 05/13/18 23:59 Nasogastric Orogastric Tube Insertion [OM.PC] Routine 05/14/18 10:19 Abdomen 1V Flat [CR] Routine 05/14/18 10:28 Potassium Chloride [KCL 20 MEQ in Water 100 ML] 20 meq Premix Bag 1 bag IV ONETIME 05/14/18 Breakfast Nothing per Oral Now Diet [DIET] 05/15/18 05:11 BASIC METABOLIC PANEL,BMP [CHEM] AM MAGNESIUM [CHEM] AM - Plan Plan:: 1. intestinal obstruction, persistent - CT scan shows dilated loops of bowel, no transition point, likely ileus - continue NG tube drainage, will recheck NG tube position with abdominal Xray - NPO - IV fluid hydration - PRN pain management as needed - hold oral meds - monitor electrolytes and replenish as needed - will give a trial of Relistor (methylnaltrexone) 2. rib fracture - stable - continue IV based pain regimen 3. Hypokalemia - replenish potassium 4. DVT prophylaxis - can still do lovenox and david hose
--- NOTE | 2018-05-14 11:38 | CR ---
Clinical history: A 67-year-old male recent narcotics use (rib fractures) and abdominal distention. Interpretation: NG tube satisfactorily positioned LUQ. Bibasilar lower lobe atelectasis or infiltrates (asymmetric dependent pleural effusion on the left). Persistent abnormal dilatation of central small bowel loops but there is now gas identified in the normal caliber transverse and sigmoid colon IE some improvement. No foreign body, abdominal mass lesion or pathologic calcification.
[2018-05-15] MEDS: Dextrose 5%-0.9% NaCl 1,000 ML IV SCH ×4 (00:30→23:57)
[2018-05-15 06:49] LABS: ANION GAP 15.3; CHLORIDE,CL 103 mmol/L (101-111); SODIUM,NA 137 mmol/L (135-145)
[2018-05-15] MEDS: Lidocaine 5% 700 MG Patch TOP SCH (08:32)
[2018-05-15] MEDS: Pantoprazole 40 MG Vial IVPUSH SCH (08:32)
[2018-05-15] MEDS: Enoxaparin 40 MG/0.4 ML Syringe SUBCUT SCH (08:32)
[2018-05-15] MEDS ORDERED: Lactulose Soln 10 GM/15 ML 30 ML UD Cup PO PRN (11:22)
[2018-05-15] MEDS ORDERED: Methylnaltrexone 12 MG/0.6 ML SDV SUBCUT ONE (11:24)
--- NOTE | 2018-05-15 11:30 | PCM.PN ---
- General Info Date of Service: 05/15/18 Admission Dx/Problem (Free Text): Admission Diagnosis/Problem Admission Diagnosis/Problem Chest pain on breathing Subjective Update: NO acute events overnight. Reports that he is having bowel movements but stool is only clear liquid and mucus. last bowel movement was around 8pm on 05/14/18. Passing flatus. Afebrile. Ambulating. No other concerns. Functional Status: Reports: Pain Controlled - Review of Systems General: Reports: No Symptoms HEENT: Reports: No Symptoms Pulmonary: Reports: No Symptoms Cardiovascular: Reports: No Symptoms Gastrointestinal: Reports: Constipation, Flatus Genitourinary: Reports: No Symptoms Musculoskeletal: Reports: No Symptoms Skin: Reports: No Symptoms Neurological: Reports: No Symptoms Psychiatric: Reports: No Symptoms - Patient Data Vitals - Most Recent: Last Vital Signs Temp 99.6 F 05/15/18 04:00 Pulse 78 05/15/18 04:00 Resp 20 05/15/18 04:00 BP 130/82 05/15/18 04:00 Pulse Ox 95 05/15/18 04:00 Weight - Most Recent: 246 lb I&O - Last 24 Hours: Intake & Output 05/14/18 05/15/18 05/15/18 22:59 06:59 14:59 Intake Total 1623 957 Output Total 750 900 Balance 873 57 Lab Results Last 24 Hours: Laboratory Results - last 24 hr 05/15/18 Range/Units 06:00 Sodium 137 (135-145) mmol/L Potassium 3.3 L (3.6-5.0) mmol/L Chloride 103 (101-111) mmol/L Carbon Dioxide 22.0 (21.0-31.0) mmol/L Anion Gap 15.3 BUN 5 L (7-18) mg/dL Creatinine 0.6 (0.6-1.3) mg/dL Est Cr Clr Drug Dosing 150.56 mL/min Estimated GFR (MDRD) > 60 Glucose 142 H (74-105) mg/dL Calcium 8.0 L (8.4-10.2) mg/dl Magnesium 1.8 (1.8-2.5) mg/dL Med Orders - Current: Current Medications Enoxaparin Sodium (Lovenox) 40 mg SUBCUT DAILY [facility] Last Admin: 05/15/18 08:32 Dose: 40 mg Dextrose/Sodium Chloride (Dextrose 5%-Normal Saline) 1,000 mls @ 125 mls/hr IV ASDIRECTED [facility] Last Admin: 05/15/18 08:32 Dose: 125 mls/hr Lactulose (Cephulac) 20 gm PO Q4H PRN PRN Reason: Constipation Lidocaine (Lidoderm 5%) 700 mg TOP DAILY@0800 [facility] Last Admin: 05/15/18 08:32 Dose: 700 mg Miscellaneous Information (Remove Patch) 0 ea TRDERM DAILY@2000 [facility] Last Admin: 05/14/18 20:42 Dose: Not Given Morphine Sulfate (Morphine) 1 mg IVPUSH Q6HR PRN PRN Reason: Pain Last Admin: 05/12/18 03:17 Dose: 1 mg Pantoprazole Sodium (Protonix Iv) 40 mg IVPUSH DAILY [facility] Last Admin: 05/15/18 08:32 Dose: 40 mg Sodium Chloride (Saline Flush) 10 ml FLUSH ASDIRECTED PRN PRN Reason: Keep Vein Open Discontinued Medications Acetaminophen (Tylenol) 650 mg PO Q4H PRN PRN Reason: Pain Last Admin: 05/12/18 21:59 Dose: 650 mg Atorvastatin Calcium (Lipitor) 10 mg PO DAILY [facility] Last Admin: 05/14/18 09:53 Dose: Not Given Cyclobenzaprine HCl (Flexeril) 10 mg PO TID PRN PRN Reason: Muscle Spasm Last Admin: 05/13/18 10:24 Dose: 10 mg Sodium Chloride (Normal Saline) 1,000 mls @ 125 mls/hr IV ASDIRECTED [facility] Last Admin: 05/12/18 07:53 Dose: 125 mls/hr Levofloxacin/Dextrose 500 mg/ (Premix) 100 mls @ 100 mls/hr IV Q24H [facility] Last Admin: 05/12/18 09:24 Dose: 100 mls/hr Pantoprazole Sodium 40 mg/ (Sodium Chloride) 100 mls @ 200 mls/hr IV ONETIME ONE Stop: 05/09/18 16:51 Last Admin: 05/09/18 16:54 Dose: 200 mls/hr Potassium Chloride 20 meq/ (Premix) 100 mls @ 50 mls/hr IV ONETIME ONE Stop: 05/14/18 12:27 Last Admin: 05/14/18 12:03 Dose: 50 mls/hr Iopamidol (Isovue-300 (61%)) 100 ml IVPUSH ONETIME ONE Stop: 05/09/18 13:34 Last Admin: 05/09/18 14:10 Dose: 100 ml Iopamidol (Isovue-300 (61%)) 100 ml IVPUSH ONETIME ONE Stop: 05/13/18 21:14 Last Admin: 05/13/18 21:27 Dose: 100 ml Ketorolac Tromethamine (Toradol) 30 mg IVPUSH Q8H PRN PRN Reason: Pain Stop: 05/13/18 16:14 Last Admin: 05/12/18 07:58 Dose: 30 mg Lactulose (Cephulac) 20 gm PO BID [facility] Last Admin: 05/09/18 10:00 Dose: 20 gm Lidocaine (Lidoderm 5%) 700 mg TOP Q24H [facility] Last Admin: 05/14/18 09:54 Dose: 700 mg Magnesium Citrate (Citrate Of Magnesia) 296 ml PO ONETIME ONE Stop: 05/13/18 09:45 Last Admin: 05/13/18 10:11 Dose: 296 ml Methylnaltrexone [place] (Relistor) 12 mg SUBCUT ONETIME ONE Stop: 05/14/18 10:01 Last Admin: 05/14/18 09:57 Dose: 12 mg Miscellaneous Information (Remove Patch) 0 ea TRDERM Q12H [facility] Last Admin: 05/14/18 12:03 Dose: 1 ea Morphine Sulfate (Morphine) 1 mg IVPUSH ONETIME ONE Stop: 05/09/18 13:41 Last Admin: 05/09/18 13:53 Dose: 1 mg Multivitamins (Thera) 1 each PO DAILY [facility] Last Admin: 05/14/18 09:54 Dose: Not Given Patient Own Medication (Ptom) each PO DAILY [facility] Acetic Acid- Hydrocortisone Otic Solution *Own Med* 0 each EARBOTH DAILY PRN PRN Reason: Itching Polyethylene Glycol (Miralax) 17 gm PO DAILY [facility] Last Admin: 05/14/18 09:53 Dose: Not Given Senna/Docusate Sodium (Senna Plus) 1 tab PO BID PRN PRN Reason: Constipation Senna/Docusate Sodium (Senna Plus) 1 tab PO BID [facility] Last Admin: 05/14/18 09:54 Dose: Not Given Tamsulosin HCl (Flomax) 0.4 mg PO DAILY [facility] Last Admin: 05/14/18 09:53 Dose: Not Given Tramadol HCl (Ultram) 50 mg PO Q6H PRN PRN Reason: Pain Last Admin: 05/13/18 14:24 Dose: 50 mg - Exam General: Alert, Oriented HEENT: Pupils Equal, Pupils Reactive, EOMI, Mucous Membr. Moist/[place] Neck: Supple Lungs: Clear to Auscultation, Normal Respiratory Effort Cardiovascular: Regular Rate, Regular Rhythm GI/Abdominal Exam: Normal Bowel Sounds, Soft, Non-Tender, Distended (Male) Exam: Deferred Back Exam: Other (Not indicated) Extremities: Normal Inspection, Normal Range of Motion, Non-Tender, No Pedal Edema, Normal Capillary Refill Skin: Warm, Dry, Intact Neurological: No New Focal Deficit Psy/Mental Status: Alert, Normal Affect, Normal Mood - Problem List & Annotations (1) Constipation due to pain medication SNOMED Code(s): 05954542 Code(s): K59.03 - DRUG INDUCED CONSTIPATION Status: Acute Current Visit: Yes - Problem List Review Problem List Initiated/Reviewed/Updated: Yes - My Orders Last 24 Hours: My Active Orders 05/15/18 11:22 Lactulose [Cephulac] 20 gm PO Q4H PRN 05/15/18 11:24 Methylnaltrexone [Relistor] 12 mg SUBCUT ONETIME ONE - Plan Plan:: 1. intestinal obstruction, persistent - CT scan shows dilated loops of bowel, no transition point, likely ileus - Reports 2 bowel movements yesterday with watery/mucus stools. Passing flatus. - continue NG tube drainage, - NPO - IV fluid hydration - PRN pain management as needed - hold oral meds - monitor electrolytes and replenish as needed - will give second dose of Relistor (methylnaltrexone) - Give lactulose PRN; titrate to 2-3 loose stools daily 2. rib fracture - stable - continue IV based pain regimen 3. Hypokalemia - replenish potassium 4. DVT prophylaxis - can still do lovenox and david hose
[2018-05-15] MEDS: Potassium Chloride 20 MEQ in Premix Bag 1 BAG IV SCH ×2 (12:43→14:42)
[2018-05-15] MEDS: Lactulose Soln 10 GM/15 ML 30 ML UD Cup PO SCH ×3 (13:56→21:12)
[2018-05-16] MEDS: Lactulose Soln 10 GM/15 ML 30 ML UD Cup PO SCH ×5 (00:46→17:52)
[2018-05-16 07:03] LABS: ANION GAP 11.6; CHLORIDE,CL 105 mmol/L (101-111); SODIUM,NA 136 mmol/L (135-145)
[2018-05-16] MEDS: Dextrose 5%-0.9% NaCl 1,000 ML IV SCH ×2 (08:02→16:15)
[2018-05-16] MEDS: Pantoprazole 40 MG Vial IVPUSH SCH (09:06)
[2018-05-16] MEDS: Enoxaparin 40 MG/0.4 ML Syringe SUBCUT SCH (09:06)
[2018-05-16] MEDS: Lidocaine 5% 700 MG Patch TOP SCH (09:06)
[2018-05-16] MEDS ORDERED: diphenhydrAMINE 50 MG/ML SDV IVPUSH PRN (10:02)
--- NOTE | 2018-05-16 10:11 | PCM.PN ---
- General Info Date of Service: 05/16/18 Admission Dx/Problem (Free Text): Admission Diagnosis/Problem Admission Diagnosis/Problem Chest pain on breathing Subjective Update: Reports that he had 4 bowel movements yesterday with lactulose. 2 had regular stool consistency; 2 were watery. 3 bowel movements this morning. Itching of right flank yesterday evening. Noted rash at that side. Otherwise, wondering when he can go home. - Review of Systems General: Reports: No Symptoms HEENT: Reports: No Symptoms Pulmonary: Reports: No Symptoms Cardiovascular: Reports: No Symptoms Gastrointestinal: Reports: Other (Stooling. ) Genitourinary: Reports: No Symptoms Musculoskeletal: Reports: No Symptoms Skin: Reports: Pruritis, Rash Neurological: Reports: No Symptoms Psychiatric: Reports: No Symptoms - Patient Data Vitals - Most Recent: Last Vital Signs Temp 98.6 F 05/16/18 08:00 Pulse 76 05/16/18 08:00 Resp 20 05/16/18 08:00 BP 124/81 05/16/18 08:00 Pulse Ox 94 L 05/16/18 08:00 Weight - Most Recent: 246 lb I&O - Last 24 Hours: Intake & Output 05/15/18 05/16/18 05/16/18 22:59 06:59 14:59 Intake Total 1100 983 Output Total 600 600 Balance 500 383 Lab Results Last 24 Hours: Laboratory Results - last 24 hr 05/16/18 05/16/18 Range/Units 06:05 06:05 WBC 6.7 (5.0-10.0) 10^3/uL RBC 4.22 L (4.6-6.2) 10^6/uL Hgb 12.8 L D (14.0-18.0) g/dL Hct 37.9 L (40.0-54.0) % MCV 89.8 (80-100) fL MCH 30.3 (27.0-34.0) pg MCHC 33.8 (33.0-35.0) g/dL Plt Count 207 (150-450) 10^3/uL Sodium 136 (135-145) mmol/L Potassium 3.6 (3.6-5.0) mmol/L Chloride 105 (101-111) mmol/L Carbon Dioxide 23.0 (21.0-31.0) mmol/L Anion Gap 11.6 BUN 5 L (7-18) mg/dL Creatinine 0.7 (0.6-1.3) mg/dL Est Cr Clr Drug Dosing 129.05 mL/min Estimated GFR (MDRD) > 60 BUN/Creatinine Ratio 7.14 Glucose 132 H (74-105) mg/dL Calcium 8.1 L (8.4-10.2) mg/dl Phosphorus 2.8 (2.5-4.6) mg/dL Albumin 3.2 (3.2-5.5) g/dl Med Orders - Current: Current Medications Diphenhydramine HCl (Benadryl) 25 mg IVPUSH Q6H PRN PRN Reason: Itching Enoxaparin Sodium (Lovenox) 40 mg SUBCUT DAILY [facility] Last Admin: 05/16/18 09:06 Dose: 40 mg Dextrose/Sodium Chloride (Dextrose 5%-Normal Saline) 1,000 mls @ 125 mls/hr IV ASDIRECTED [facility] Last Admin: 05/16/18 08:02 Dose: 125 mls/hr Lactulose (Cephulac) 20 gm PO Q4H [facility] Last Admin: 05/16/18 05:53 Dose: Not Given Lidocaine (Lidoderm 5%) 700 mg TOP DAILY@0800 [facility] Last Admin: 05/16/18 09:06 Dose: 700 mg Miscellaneous Information (Remove Patch) 0 ea TRDERM DAILY@2000 [facility] Last Admin: 05/15/18 21:12 Dose: Not Given Morphine Sulfate (Morphine) 1 mg IVPUSH Q6HR PRN PRN Reason: Pain Last Admin: 05/12/18 03:17 Dose: 1 mg Pantoprazole Sodium (Protonix Iv) 40 mg IVPUSH DAILY [facility] Last Admin: 05/16/18 09:06 Dose: 40 mg Sodium Chloride (Saline Flush) 10 ml FLUSH ASDIRECTED PRN PRN Reason: Keep Vein Open Discontinued Medications Acetaminophen (Tylenol) 650 mg PO Q4H PRN PRN Reason: Pain Last Admin: 05/12/18 21:59 Dose: 650 mg Atorvastatin Calcium (Lipitor) 10 mg PO DAILY [facility] Last Admin: 05/14/18 09:53 Dose: Not Given Cyclobenzaprine HCl (Flexeril) 10 mg PO TID PRN PRN Reason: Muscle Spasm Last Admin: 05/13/18 10:24 Dose: 10 mg Sodium Chloride (Normal Saline) 1,000 mls @ 125 mls/hr IV ASDIRECTED [facility] Last Admin: 05/12/18 07:53 Dose: 125 mls/hr Levofloxacin/Dextrose 500 mg/ (Premix) 100 mls @ 100 mls/hr IV Q24H [facility] Last Admin: 05/12/18 09:24 Dose: 100 mls/hr Pantoprazole Sodium 40 mg/ (Sodium Chloride) 100 mls @ 200 mls/hr IV ONETIME ONE Stop: 05/09/18 16:51 Last Admin: 05/09/18 16:54 Dose: 200 mls/hr Potassium Chloride 20 meq/ (Premix) 100 mls @ 50 mls/hr IV ONETIME ONE Stop: 05/14/18 12:27 Last Admin: 05/14/18 12:03 Dose: 50 mls/hr Potassium Chloride 20 meq/ (Premix) 100 mls @ 50 mls/hr IV Q1H [facility] Stop: 05/15/18 13:59 Last Admin: 05/15/18 14:42 Dose: 50 mls/hr Iopamidol (Isovue-300 (61%)) 100 ml IVPUSH ONETIME ONE Stop: 05/09/18 13:34 Last Admin: 05/09/18 14:10 Dose: 100 ml Iopamidol (Isovue-300 (61%)) 100 ml IVPUSH ONETIME ONE Stop: 05/13/18 21:14 Last Admin: 05/13/18 21:27 Dose: 100 ml Ketorolac Tromethamine (Toradol) 30 mg IVPUSH Q8H PRN PRN Reason: Pain Stop: 05/13/18 16:14 Last Admin: 05/12/18 07:58 Dose: 30 mg Lactulose (Cephulac) 20 gm PO BID [facility] Last Admin: 05/09/18 10:00 Dose: 20 gm Lactulose (Cephulac) 20 gm PO Q4H PRN PRN Reason: Constipation Lidocaine (Lidoderm 5%) 700 mg TOP Q24H [facility] Last Admin: 05/14/18 09:54 Dose: 700 mg Magnesium Citrate (Citrate Of Magnesia) 296 ml PO ONETIME ONE Stop: 05/13/18 09:45 Last Admin: 05/13/18 10:11 Dose: 296 ml Methylnaltrexone [place] (Relistor) 12 mg SUBCUT ONETIME ONE Stop: 05/14/18 10:01 Last Admin: 05/14/18 09:57 Dose: 12 mg Methylnaltrexone [place] (Relistor) 12 mg SUBCUT ONETIME ONE Stop: 05/15/18 11:25 Last Admin: 05/15/18 12:35 Dose: Not Given Miscellaneous Information (Remove Patch) 0 ea TRDERM Q12H [facility] Last Admin: 05/14/18 12:03 Dose: 1 ea Morphine Sulfate (Morphine) 1 mg IVPUSH ONETIME ONE Stop: 05/09/18 13:41 Last Admin: 05/09/18 13:53 Dose: 1 mg Multivitamins (Thera) 1 each PO DAILY [facility] Last Admin: 05/14/18 09:54 Dose: Not Given Patient Own Medication (Ptom) each PO DAILY [facility] Acetic Acid- Hydrocortisone Otic Solution *Own Med* 0 each EARBOTH DAILY PRN PRN Reason: Itching Polyethylene Glycol (Miralax) 17 gm PO DAILY [facility] Last Admin: 05/14/18 09:53 Dose: Not Given Senna/Docusate Sodium (Senna Plus) 1 tab PO BID PRN PRN Reason: Constipation Senna/Docusate Sodium (Senna Plus) 1 tab PO BID [facility] Last Admin: 05/14/18 09:54 Dose: Not Given Tamsulosin HCl (Flomax) 0.4 mg PO DAILY [facility] Last Admin: 05/14/18 09:53 Dose: Not Given Tramadol HCl (Ultram) 50 mg PO Q6H PRN PRN Reason: Pain Last Admin: 05/13/18 14:24 Dose: 50 mg - Exam General: Alert HEENT: Pupils Equal, Pupils Reactive, EOMI, Mucous Membr. Moist/[place], Other ( NGT in place with clear fluid. ) Neck: Supple Lungs: Clear to Auscultation, Normal Respiratory Effort Cardiovascular: Regular Rate, Regular Rhythm GI/Abdominal Exam: Normal Bowel Sounds, Soft, Non-Tender, No Distention (Male) Exam: Deferred Extremities: Normal Inspection, Non-Tender, No Pedal Edema Peripheral Pulses: 2+: Radial (L), Radial (R), Dorsalis Pedis (L), Dorsalis Pedis (R) Skin: Warm, Dry, Intact, Rash (maculapapular rash most prominent on bilataral flanks and back, extending to lower abdomen and scant rash on chest.) - Problem List & Annotations (1) Constipation due to pain medication SNOMED Code(s): 74223459 Code(s): K59.03 - DRUG INDUCED CONSTIPATION Status: Acute Current Visit: Yes (2) Ribs, multiple fractures SNOMED Code(s): 2422357 Code(s): S22.49XA - MULTIPLE FRACTURES OF RIBS, UNSP SIDE, INIT FOR CLOS FX Status: Acute Current Visit: No Qualifiers: Encounter type: initial encounter Fracture type: closed Laterality: left Qualified Code(s): S22.42XA - Multiple fractures of ribs, left side, initial encounter for closed fracture - Problem List Review Problem List Initiated/Reviewed/Updated: Yes - My Orders Last 24 Hours: My Active Orders 05/15/18 13:00 Lactulose [Cephulac] 20 gm PO Q4H 05/16/18 10:02 diphenhydrAMINE [Benadryl] 25 mg IVPUSH Q6H PRN 05/16/18 10:03 Small Bowel w Serial Film [CR] Routine - Plan Plan:: 1. intestinal obstruction, persistent - CT scan shows dilated loops of bowel, no transition point, likely ileus - Reports 2 bowel movements yesterday with watery/mucus stools. Passing flatus. - continue NG tube drainage, - NPO - IV fluid hydration - PRN pain management as needed - hold oral meds - monitor electrolytes and replenish as needed - Give lactulose q4 hours; titrate to 2-3 loose stools daily - Small bowel follow through #Rash/pruritus: distribution gives rise to possibility of allergic reaction. - only new med started yesterday was lactulose; stated he had received in the past. - Benadryl q6 PRN - Patient to start using his home lotion and soap to see if rash resolves. 2. rib fracture - stable - continue IV based pain regimen 3. Hypokalemia - replenish potassium 4. DVT prophylaxis - can still do lovenox and david hose
[2018-05-16] MEDS ORDERED: Diatrizoate Meglumine/Diatrizoate Sodium 37% 120 ML Bottle PO ONE (11:30)
--- NOTE | 2018-05-16 17:55 | PCM.DCSUM1 ---
Discharge Summary - Hospital Course Free Text/Narrative:: Had a fall last week, noted to have left-sided rib fracture. Started hydrocodone , developed ileus upon workup during the clinic. CT showed intestinal dilatation but could not determine point of obstruction. Was admitted and managed for intestinal obstruction. NG tube was placed. Patient developed BS and BMs and the NG tube was removed and diet was advanced to clear liquids on 05/11/17 and regular on 05/12/17. However on 05/13/2017, patient still felt fullness. Repeat imaging was obtained which showed persistent obstruction with dilated loops of bowel. NG tube was placed again and patient made NPO. We gave a trial of relistor on 05/14/2017. Was passing gas on 05/15. Lactulose administered with 4 bowel movements. SBFT was obtained today which showed persistent, high-grade obstruction. He is being transferred to [facility] for surgical consultation. HPI Initial Comments: Patient is a 67 year old male admitted due to persistent chest wall pain and ileus. one week ago, patient had a fall in the ice, landed on his left side. supposed to go to ER [facility] but due to long wait, decided to come home to [place] and seen in ER, was noted to have left rib fractures. seen in clinic subsequently, started on pain medication and prophylactic Levaquin. patient then started having right lower quadrant yesterday and noticed too that he has not been having his regular bowel movements, last normal BM was 5 days ago. yesterday, took OTC stool softener and only had 3 small BMs. no melena nor hematochezia. has not been eating well lately as he feels full. no nausea nor vomiting. seen in clinic today. chest ray showed left infltrate and bibasilar pleural effusion. abdomimal xray showed ileus and stools on right side with no signs of bowel obstruction, because of these, was advised admission. Diagnosis: Stroke: No - Discharge Data Discharge Date: 05/16/18 Discharge Disposition: DC/Tfer to Acute Hospital 02 Condition: Fair - Discharge Diagnosis/Problem(s) (1) Constipation due to pain medication SNOMED Code(s): 81688331 ICD Code: K59.03 - DRUG INDUCED CONSTIPATION Status: Acute Current Visit : Yes (2) Ribs, multiple fractures SNOMED Code(s): 9196712 ICD Code: S22.49XA - MULTIPLE FRACTURES OF RIBS, UNSP SIDE, INIT FOR CLOS FX Status: Acute Current Visit: No Qualifiers: Encounter type: initial encounter Fracture type: closed Laterality: left Qualified Code(s): S22.42XA - Multiple fractures of ribs, left side, initial encounter for closed fracture (3) Small bowel obstruction SNOMED Code(s): 898308178 ICD Code: K56.609 - UNSP INTESTNL OBST, UNSP TO PARTIAL VERSUS COMPLETE OBST Status: Acute Current Visit: Yes - Patient Instructions Diet: NPO Activity: As Tolerated Showering/Bathing: September Shower - Discharge Plan Home Medications: Home Meds Multivitamin [Multivitamins] 1 tab PO DAILY 05/04/18 [History] Tamsulosin [Flomax] 0.4 mg PO BEDTIME 05/04/18 [History] atorvaSTATin [Lipitor] 10 mg PO BEDTIME 05/04/18 [History] Cyclobenzaprine [Flexeril] 10 mg PO TID PRN 05/08/18 [History] Hydrocodone/Acetaminophen [Hydrocodon-Acetaminophen 5-325] 2 tab PO Q6HR PRN 07/22 [History] Patient's Own Medication [Ptom] 1 - 2 drop EARBOTH DAILY PRN 05/08/18 [History] Patient's Own Medication [Ptom] 1 tab PO DAILY 05/08/18 [History] levoFLOXacin [Levaquin] 500 mg PO DAILY 05/08/18 [History] Lidocaine 5% [Lidoderm 5%] 700 mg TOP DAILY@0800 patch 05/16/18 [Rx] Morphine 1 mg IVPUSH Q6HR PRN syringe 05/16/18 [Rx] Pantoprazole [ProTONIX IV] 40 mg IVPUSH DAILY vial 05/16/18 [Rx] Remove Patch 0 ea TRDERM DAILY@2000 each 05/16/18 [Rx] Oxygen Therapy Mode: Room Air - Discharge Summary/Plan Comment DC Time >30 min.: Yes (I spent over 45 minutes on this patient's discharge. ) - General Info Date of Service: 05/16/18 Admission Dx/Problem (Free Text: Admission Diagnosis/Problem Admission Diagnosis/Problem Chest pain on breathing Subjective Update: Reports that he had 4 bowel movements yesterday with lactulose. 2 had regular stool consistency; 2 were watery. 3 bowel movements this morning. Itching of right flank yesterday evening. Noted rash at that side. Otherwise, wondering when he can go home. - Patient Data Vitals - Most Recent: Last Vital Signs Temp 99.3 F 05/16/18 11:33 Pulse 73 05/16/18 11:33 Resp 20 05/16/18 11:33 BP 132/82 05/16/18 11:33 Pulse Ox 95 05/16/18 16:00 Weight - Most Recent: 246 lb I&O - Last 24 hours: Intake & Output 05/16/18 05/16/18 05/16/18 06:59 14:59 22:59 Intake Total 983 Output Total 600 900 Balance 383 -900 Lab Results - Last 24 hrs: Laboratory Results - last 24 hr 05/16/18 05/16/18 Range/Units 06:05 06:05 WBC 6.7 (5.0-10.0) 10^3/uL RBC 4.22 L (4.6-6.2) 10^6/uL Hgb 12.8 L D (14.0-18.0) g/dL Hct 37.9 L (40.0-54.0) % MCV 89.8 (80-100) fL MCH 30.3 (27.0-34.0) pg MCHC 33.8 (33.0-35.0) g/dL Plt Count 207 (150-450) 10^3/uL Sodium 136 (135-145) mmol/L Potassium 3.6 (3.6-5.0) mmol/L Chloride 105 (101-111) mmol/L Carbon Dioxide 23.0 (21.0-31.0) mmol/L Anion Gap 11.6 BUN 5 L (7-18) mg/dL Creatinine 0.7 (0.6-1.3) mg/dL Est Cr Clr Drug Dosing 129.05 mL/min Estimated GFR (MDRD) > 60 BUN/Creatinine Ratio 7.14 Glucose 132 H (74-105) mg/dL Calcium 8.1 L (8.4-10.2) mg/dl Phosphorus 2.8 (2.5-4.6) mg/dL Albumin 3.2 (3.2-5.5) g/dl Med Orders - Current: Current Medications Diphenhydramine HCl (Benadryl) 25 mg IVPUSH Q6H PRN PRN Reason: Itching Last Admin: 05/16/18 11:00 Dose: 25 mg Enoxaparin Sodium (Lovenox) 40 mg SUBCUT DAILY [facility] Last Admin: 05/16/18 09:06 Dose: 40 mg Dextrose/Sodium Chloride (Dextrose 5%-Normal Saline) 1,000 mls @ 125 mls/hr IV ASDIRECTED [facility] Last Infusion: 05/16/18 16:15 Dose: Infused Lactulose (Cephulac) 20 gm PO Q4H [facility] Last Admin: 05/16/18 14:27 Dose: Not Given Lidocaine (Lidoderm 5%) 700 mg TOP DAILY@0800 [facility] Last Admin: 05/16/18 09:06 Dose: 700 mg Miscellaneous Information (Remove Patch) 0 ea TRDERM DAILY@1999 [facility] Last Admin: 05/15/18 21:12 Dose: Not Given Morphine Sulfate (Morphine) 1 mg IVPUSH Q6HR PRN PRN Reason: Pain Last Admin: 05/12/18 03:17 Dose: 1 mg Pantoprazole Sodium (Protonix Iv) 40 mg IVPUSH DAILY [facility] Last Admin: 05/16/18 09:06 Dose: 40 mg Sodium Chloride (Saline Flush) 10 ml FLUSH ASDIRECTED PRN PRN Reason: Keep Vein Open Discontinued Medications Acetaminophen (Tylenol) 650 mg PO Q4H PRN PRN Reason: Pain Last Admin: 05/12/18 21:59 Dose: 650 mg Atorvastatin Calcium (Lipitor) 10 mg PO DAILY [facility] Last Admin: 05/14/18 09:53 Dose: Not Given Cyclobenzaprine HCl (Flexeril) 10 mg PO TID PRN PRN Reason: Muscle Spasm Last Admin: 05/13/18 10:24 Dose: 10 mg Diatrizoate [place]/Diatrizoate Sod (Gastrografin 37%) 180 ml PO ONETIME ONE Stop: 05/16/18 11:31 Last Admin: 05/16/18 16:00 Dose: 180 ml Sodium Chloride (Normal Saline) 1,000 mls @ 125 mls/hr IV ASDIRECTED [facility] Last Admin: 05/12/18 07:53 Dose: 125 mls/hr Levofloxacin/Dextrose 500 mg/ (Premix) 100 mls @ 100 mls/hr IV Q24H [facility] Last Admin: 05/12/18 09:24 Dose: 100 mls/hr Pantoprazole Sodium 40 mg/ (Sodium Chloride) 100 mls @ 200 mls/hr IV ONETIME ONE Stop: 05/09/18 16:51 Last Admin: 05/09/18 16:54 Dose: 200 mls/hr Potassium Chloride 20 meq/ (Premix) 100 mls @ 50 mls/hr IV ONETIME ONE Stop: 05/14/18 12:27 Last Admin: 05/14/18 12:03 Dose: 50 mls/hr Potassium Chloride 20 meq/ (Premix) 100 mls @ 50 mls/hr IV Q1H [facility] Stop: 05/15/18 13:59 Last Admin: 05/15/18 14:42 Dose: 50 mls/hr Iopamidol (Isovue-300 (61%)) 100 ml IVPUSH ONETIME ONE Stop: 05/09/18 13:34 Last Admin: 05/09/18 14:10 Dose: 100 ml Iopamidol (Isovue-300 (61%)) 100 ml IVPUSH ONETIME ONE Stop: 05/13/18 21:14 Last Admin: 05/13/18 21:27 Dose: 100 ml Ketorolac Tromethamine (Toradol) 30 mg IVPUSH Q8H PRN PRN Reason: Pain Stop: 05/13/18 16:14 Last Admin: 05/12/18 07:58 Dose: 30 mg Lactulose (Cephulac) 20 gm PO BID [facility] Last Admin: 05/09/18 10:00 Dose: 20 gm Lactulose (Cephulac) 20 gm PO Q4H PRN PRN Reason: Constipation Lidocaine (Lidoderm 5%) 700 mg TOP Q24H [facility] Last Admin: 05/14/18 09:54 Dose: 700 mg Magnesium Citrate (Citrate Of Magnesia) 296 ml PO ONETIME ONE Stop: 05/13/18 09:45 Last Admin: 05/13/18 10:11 Dose: 296 ml Methylnaltrexone [place] (Relistor) 12 mg SUBCUT ONETIME ONE Stop: 05/14/18 10:01 Last Admin: 05/14/18 09:57 Dose: 12 mg Methylnaltrexone [place] (Relistor) 12 mg SUBCUT ONETIME ONE Stop: 05/15/18 11:25 Last Admin: 05/15/18 12:35 Dose: Not Given Miscellaneous Information (Remove Patch) 0 ea TRDERM Q12H [facility] Last Admin: 05/14/18 12:03 Dose: 1 ea Morphine Sulfate (Morphine) 1 mg IVPUSH ONETIME ONE Stop: 05/09/18 13:41 Last Admin: 05/09/18 13:53 Dose: 1 mg Multivitamins (Thera) 1 each PO DAILY [facility] Last Admin: 05/14/18 09:54 Dose: Not Given Patient Own Medication (Ptom) each PO DAILY [facility] Acetic Acid- Hydrocortisone Otic Solution *Own Med* 0 each EARBOTH DAILY PRN PRN Reason: Itching Polyethylene Glycol (Miralax) 17 gm PO DAILY [facility] Last Admin: 05/14/18 09:53 Dose: Not Given Senna/Docusate Sodium (Senna Plus) 1 tab PO BID PRN PRN Reason: Constipation Senna/Docusate Sodium (Senna Plus) 1 tab PO BID [facility] Last Admin: 05/14/18 09:54 Dose: Not Given Tamsulosin HCl (Flomax) 0.4 mg PO DAILY [facility] Last Admin: 05/14/18 09:53 Dose: Not Given Tramadol HCl (Ultram) 50 mg PO Q6H PRN PRN Reason: Pain Last Admin: 05/13/18 14:24 Dose: 50 mg - Exam General: Reports: Alert, Oriented, Cooperative HEENT: Reports: Pupils Equal, Pupils Reactive, EOMI, Mucous Membr. Moist/[place] Neck: Reports: Supple, Trachea Midline Lungs: Reports: Clear to Auscultation, Normal Respiratory Effort Cardiovascular: Reports: Regular Rate, Regular Rhythm GI/Abdominal Exam: Normal Bowel Sounds, Soft, Non-Tender, Other (Slightly distended) Skin: Reports: Warm, Dry, Intact, Rash Neurological: Reports: No New Focal Deficit Psy/Mental Status: Reports: Alert, Normal Affect, Normal Mood
--- NOTE | 2018-05-16 18:12 | CR ---
Clinical history: 67-year-old male hospitalized since 08 May with severe ileus versus mechanical bowel obstruction (patient's history complicated by treatment for multiple rib fractures (hydrocodone then morphine) suffered on 04 May 2018 fall. TECHNIQUE: Serial plain films obtained at 30 minute (x4) then hourly (x2) following the introduction 180 cc Gastrografin per NG tube with patient walking between the films. Mr. Gama tolerated the procedure extremely well. (Because of his height, two upright AP abdominal films obtained at each interval) End of the exam approximately 50 cc gastric secretions and Gastrografin removed. Interpretation: Abnormal. The hypertonic Gastrografin contrast advanced steadily through the abnormality dilated small bowel but did not fill the terminal ileum or empty into the cecum. Differential air-fluid levels identified throughout the small intestine line but none were present in the normal caliber colon. No foreign body, soft tissue mass or free intraperitoneal air. Bibasilor dependent pleural effusion with underlying atelectasis or infiltrate left lower lobe (CT: several lower left rib fractures). CONCLUSION: Mechanical, high-grade, distal small bowel obstruction (SBO), etiology uncertain.
--- NOTE | 2018-05-16 18:30 | CT ---
Clinical history: 67-year-old tall diabetic male severely injured in fall 04 May 2018 (sustaining several posterior lateral lower left rib fractures with underlying atelectasis/infiltrate and dependent pleural effusions); treated for pain as an outpatient for 5 days with hydrocodone; and subsequently with morphine for 4 days after hospitalization on 08 May. Abnormal small bowel pattern initially attributed to a paralytic ileus did not resolve despite stopping morphine on May 12. Two previous hernia surgeries. Scan technique: Volume acquisition of data from the abdomen and pelvis obtained following the introduction of 180 cc Gastrografin (NG tube) but without IV contrast were patient was lying supine on the Siemens multi slice scanner [employer], [place]. All data archived in the PACS system for storage, reformatting axial/sagittal/coronal planes and study. Interpretation: Abnormal. 1. *Generalized abnormal distention of entire small intestine line down to the right lower quadrant where there is seems to be abrupt transition to 7 cm long segment of normal-appearing terminal ileum (clearly emptying through the ileocecal valve). 2. Normal appendix RLQ. 3. No right lower quadrant abscess or mass lesion. No inflammatory "dirty" peritoneal fat. Ascitic fluid described May. 4. Normal caliber fluid filled right colon and the descending left colon unremarkable except for a few diverticula sigmoid colon. 5. No inguinal or ventral wall hernias (paranasal symmetric posteriolateral flank trauma on the right). 6. Anterolisthesis L5 vertebral body and signs of chronic severe lower lumbar L5-S1 disc disease. 7. Bibasilar dependent subpulmonic pleural effusions; underlying posterior segment lower lobe atelectasis/infiltrates bilaterally. CONCLUSION: Abnormal chronic (at least 6 days), high-grade, mechanical small bowel obstruction (SBO). Etiology uncertain. Colonoscopy to evaluate the cecum and ileocecal region suggested. Note: Details of these procedures/findings discussed with hospitalist at [facility], 1800 hours, 16 May 2018.
== END 2018-05-16 19:58 | DRG 389 ==
LOC: UNDOADMIN 15:19 → DL.MS 15:19
PROVIDERS: ADMIT Internal Medicine; ATTEND Internal Medicine
PROC: 0D9670Z Drainage of Stomach with Drainage Device, Via Natural or Artificial Opening (ICD-10-PCS; principal; 2018-05-09)
PROC: 0D9670Z Drainage of Stomach with Drainage Device, Via Natural or Artificial Opening (ICD-10-PCS; 2018-05-14)
DX: K56.7 Ileus, unspecified (principal); S22.42XA Multiple fractures of ribs, left side, initial encounter for closed fracture; W00.0XXA Fall on same level due to ice and snow, initial encounter; E87.6 Hypokalemia; K59.03 Drug induced constipation; L29.9 Pruritus, unspecified; E78.00 Pure hypercholesterolemia, unspecified; E11.9 Type 2 diabetes mellitus without complications; D47.3 Essential (hemorrhagic) thrombocythemia; H54.7 Unspecified visual loss; N42.9 Disorder of prostate, unspecified; R35.0 Frequency of micturition; T50.995A Adverse effect of other drugs, medicaments and biological substances, initial encounter; Z88.0 Allergy status to penicillin; Z79.899 Other long term (current) drug therapy
CPT/HCPCS: 36415; 74018; 74019; 74176; 74177; 74250; 80048; 80069; 83735; 85025; 85027; 94010; A9270-GY; C9113; J1200; J1650; J1885; J1956; J2212; J2270; J3480; J7030; J7042; J7050; Q9963; Q9967

== ENCOUNTER 2021-01-26 06:45 | Day surgery (SDC) | payer MEDICARE, BC ==
[~2021-01-26 06:45] MED LIST: Dextrose 5%-0.45% NaCl 1,000 ML IV SCH; Midazolam 1 MG/ML 2 ML SDV ONE; Sodium Chloride 0.9% 10 ML Syringe FLUSH PRN; fentaNYL 100 MCG/2 ML SDV ONE
[2021-01-26] MEDS ORDERED: Midazolam 1 MG/ML 2 ML SDV IV ONE ×3 (06:46→08:00)
[2021-01-26] MEDS ORDERED: fentaNYL 100 MCG/2 ML SDV IV ONE ×3 (06:46→07:59)
--- NOTE | 2021-01-26 13:25 | OR ---
DATE: 01/26/2021 PROCEDURE: Esophagogastroduodenoscopy and multiple pinch biopsies. INSTRUMENT USED: [id number] Olympus video panendoscope. PREMEDICATIONS: No oral or topical anesthesia used. Fentanyl 100 mcg intravenous, Versed 2 mg intravenous. The procedure was done under pulse oximetry, BP recording, and youth nutritional monitor. INDICATION: The patient with persistent heartburn and dyspepsia along with abdominal pain unexplained and not responsive to medical measures. The esophagogastroduodenoscopy is performed for detection of any active erosive lesions, [place]z esophagus and/or malignancy also under consideration, H pylori status to be determined, endoscopic hemostasis therapy if needed. The scope was passed with ease. Adequate visualization of the esophagus was made from proximal to distal areas. No upper esophageal lesions identified. No distal esophageal stricture. No uphill or downhill esophageal varices. No Kamryn- Sims tear. Grade A erosive changes were noted by [place] criteria. No esophageal polyp or tumor mass identified. Z-line was seen at around 42 cm distal to the oral verge. No proximal gastric varices noted. Gastric fundus examination by retroflexion showed diminutive benign-appearing polyps. No gastric ulcer, malignant mass, or vascular ectasia identified. Duodenal bulb showed no ulcer. Visualized second part of the duodenum was unremarkable. Multiple pinch biopsies were taken from the gastric antrum and proximal body and sent for PyloriTek test for H pylori, and if negative in an hour, the tissue is to be sent for histopathology. No bleeding was noted from any of the visualized areas at the completion of examination. IMPRESSION: 1. Grade A gastroesophageal reflux disease. 2. Diminutive gastric fundus polyps. The patient tolerated the procedure well. [facility] /[id number]
== END 2021-01-26 10:12 | disposition home or self-care (01) ==
LOC: DL.ENDO 06:45
PROVIDERS: ATTEND Internal Medicine Gastroenterology
DX: K31.89 Other diseases of stomach and duodenum (principal); I78.1 Nevus, non-neoplastic; K21.9 Gastro-esophageal reflux disease without esophagitis; K31.7 Polyp of stomach and duodenum; E11.9 Type 2 diabetes mellitus without complications; E78.5 Hyperlipidemia, unspecified; N40.0 Benign prostatic hyperplasia without lower urinary tract symptoms; D69.6 Thrombocytopenia, unspecified; Z98.890 Other specified postprocedural states; Z80.0 Family history of malignant neoplasm of digestive organs; Z88.8 Allergy status to other drugs, medicaments and biological substances; Z86.16 Personal history of COVID-19; Z01.812 Encounter for preprocedural laboratory examination; Z20.822 Contact with and (suspected) exposure to COVID-19
CPT/HCPCS: 43239; 87077; J2250; J3010; J7042; U0002; 88305

== ENCOUNTER 2021-04-23 11:31 | Emergency (ER) | payer MEDICARE, BC ==
[2021-04-23] MEDS ORDERED: Sodium Chloride 0.9% 10 ML Syringe FLUSH PRN (11:38)
--- NOTE | 2021-04-23 11:54 | EDM.PDOC ---
ED HPI GENERAL MEDICAL PROBLEM - General Chief Complaint: Back Pain or Injury Stated Complaint: FELL IN BATHROOM / INJURED RIBS Time Seen by Provider: 04/23/21 11:49 Source of Information: Reports: Patient History Limitations: Reports: No Limitations - History of Present Illness INITIAL COMMENTS - FREE TEXT/NARRATIVE: 70 y/o M c/o L posterior rib pain after falling in his bathroom about 3 am this morning. Pt got up last night to urinate and passed out in the bathroom. Pt was unconscious for several minutes. His heard him fall and came immediately to the bathroom where she found pt on the floor unconscious. The pt awoke and was assisted back to his bed. The back pain has gotten worse as the day progressed and now rates it a 8/10 and worse with deep breathing. Hx of prostate problems usually gets up 3-4 a night to urinate. Is on Tamsulosin. No heart hx, cva, seizure hx. Had been drinking alcohol last night prior to bedtime was reports he was buzzed before going to bed. Denies pool, vision prob, weakness, neck pn, ctls pn, abd pn, pelvic pn, ext pain. Left Middle Back Pain Score (Numeric/FACES): 6 - Related Data Allergies Allergy/AdvReac Type Severity Reaction Status Date / Time amoxicillin Allergy Facial Verified 04/23/21 11:44 Swelling Penicillins Allergy Facial Verified 04/23/21 11:44 Swelling tetracycline Allergy Facial Verified 04/23/21 11:44 Swelling Home Meds: Home Meds Multivitamin [Multivitamins] 1 tab PO DAILY 05/04/18 [History] Tamsulosin [Flomax] 0.4 mg PO BEDTIME 05/04/18 [History] atorvaSTATin [Lipitor] 10 mg PO BEDTIME 05/04/18 [History] Patient's Own Medication [Ptom] 1 - 2 drop EARBOTH DAILY PRN 05/08/18 [History] Calcium Carbonate [Tums] 1,000 mg PO DAILY 01/25/21 [History] Loratadine/Pseudoephedrine [Allergy Relief-Nasal Decong Tb] 1 tab PO DAILY 01/25/21 [History] Past Medical History HEENT History: Reports: Hard of Hearing, Impaired Vision Cardiovascular History: Reports: High Cholesterol Respiratory History: Reports: None Gastrointestinal History: Reports: GERD Genitourinary History: Reports: BPH, Prostate Disorder, Other (See Below) Other Genitourinary History: nocturnal frequency Musculoskeletal History: Reports: Fracture, Other (See Below) Other Musculoskeletal History: ribs Neurological History: Reports: None Psychiatric History: Reports: None Endocrine/Metabolic History: Reports: Diabetes, Type II Hematologic History: Reports: Other (See Below) Other Hematologic History: thrombocytopenia Immunologic History: Reports: None Oncologic (Cancer) History: Reports: None Dermatologic History: Reports: None - Infectious Disease History Infectious Disease History: Reports: Chicken Pox, Measles, Novel Coronavirus - Past Surgical History Head Surgeries/Procedures: Reports: None HEENT Surgical History: Reports: None Cardiovascular Surgical History: Reports: None Respiratory Surgical History: Reports: None GI Surgical History: Reports: Colonoscopy, Hernia Repair/Other Other GI Surgeries/Procedures: inguinal hernia repair as a child Male Surgical History: Reports: None Neurological Surgical History: Reports: None Musculoskeletal Surgical History: Reports: None Oncologic Surgical History: Reports: None Dermatological Surgical History: Reports: None Social & Family History - Family History Family Medical History: No Pertinent Family History - Tobacco Use Tobacco Use Status *Q: Never Tobacco User - Caffeine Use Caffeine Use: Reports: Coffee - Alcohol Use Days Per Week of Alcohol Use: 1 Number of Drinks Per Day: 2 Total Drinks Per Week: 2 - Recreational Drug Use Recreational Drug Use: No ED ROS GENERAL - Review of Systems Review Of Systems: Comprehensive ROS is negative, except as noted in HPI. ED EXAM, UPPER BACK/NECK PAIN - Physical Exam Exam: See Below Exam Limited By: No Limitations General Appearance: Alert, Mild Distress Eye Exam: Bilateral Eye: PERRL Ears Exam: Normal External Exam, Normal Canal, Hearing Grossly Normal, Normal TMs Nose Exam: Normal Inspection, Normal Mucousa, No Blood Throat/Mouth Exam: Normal Inspection, Normal Lips, Normal Teeth, Normal Gums, Normal Oropharynx, Normal Voice, No Airway Compromise Head Exam: Atraumatic, Normocephalic Neck Exam: Non-Tender, Full Range of Motion, Normal Alignment, Normal Inspection Cardiovascular/Respiratory: Regular Rate, Rhythm, No M/R/G, Normal Peripheral Pulses, No JVD, Normal Breath Sounds, No Respiratory Distress GI/Abdominal: Soft, Non-Tender (Male) Exam: Deferred Rectal (Males) Exam: Deferred Back Exam: Normal Inspection, Full Range of Motion Extremities: Normal Inspection, Normal Range of Motion, Non-Tender, No Pedal Edema, Normal Capillary Refill Neurologic: Alert, Normal Mood/Affect Psychiatric: Normal Affect, Normal Mood Skin Exam: Normal Color, Warm/Dry #1 Interpretation EKG Date: 04/23/21 Time: 01:14 Rhythm: Other (sinus with first degree block) [place]: Normal P-Wave: Present QRS: Normal ST-T: Normal QT: Normal Course - Vital Signs Last Recorded V/S: Last Vital Signs Temp 97.9 F 04/23/21 11:41 Pulse 93 04/23/21 11:41 Resp 20 04/23/21 11:41 BP 161/111 H 04/23/21 11:41 Pulse Ox 95 04/23/21 11:41 - Orders/Labs/Meds Orders: Active Orders 24 hr Category Date Time Status EKG Documentation Completion [RC] STAT Care 04/23/21 11:38 Active Peripheral IV Care [RC] . DIRECTED Care 04/23/21 11:39 Active UA RFX MARK AND CULT IF INDIC [URIN] Stat Lab 04/23/21 11:39 Ordered Sodium Chloride 0.9% [Saline Flush] Med 04/23/21 11:38 Active 10 ml FLUSH ASDIRECTED PRN Peripheral IV Insertion Adult [OM.PC] Routine Oth 04/23/21 11:38 Ordered Medication Orders Sodium Chloride (Sodium Chloride 0.9% 10 Ml Syringe) 10 ml FLUSH ASDIRECTED PRN PRN Reason: Keep Vein Open Last Admin: 04/23/21 12:40 Dose: 10 ml Documented by: RODERICK Labs: Laboratory Tests 04/23/21 04/23/21 Range/Units 11:54 11:54 WBC 8.2 (5.0-10.0) 10^3/uL RBC 5.00 (4.6-6.2) 10^6/uL Hgb 15.4 D (14.0-18.0) g/dL Hct 45.7 (40.0-54.0) % MCV 91.4 (80-100) fL MCH 30.8 (27.0-34.0) pg MCHC 33.7 (33.0-35.0) g/dL Plt Count 149 L (150-450) 10^3/uL Neut % (Auto) 76.0 H (42.2-75.2) % Lymph % (Auto) 11.9 L (20.5-50.1) % [place] % (Auto) 9.4 H (2-8) % Eos % (Auto) 2.2 (1.0-3.0) % Baso % (Auto) 0.5 (0.0-1.0) % Sodium 132 L (136-145) mmol/L Potassium 4.6 (3.5-5.1) mmol/L Chloride 100 (98-107) mmol/L Carbon Dioxide 26 (21-32) mmol/L Anion Gap 10.6 (7-13) mEq/L BUN 16 (7-18) mg/dL Creatinine 0.85 (0.70-1.30) mg/dL Est Cr Clr Drug Dosing 99.28 mL/min Estimated GFR (MDRD) > 60 BUN/Creatinine Ratio 18.8 (No establ ref range) Glucose 171 H (70-99) mg/dL Calcium 8.4 L (8.5-10.1) mg/dL Magnesium 2.1 (1.8-2.4) mg/dL Total Bilirubin 0.4 (0.2-1.0) mg/dL AST 17 (15-37) U/L ALT 35 (16-63) U/L Alkaline Phosphatase 84 (46-116) U/L Troponin I High Sens 7 (<=76) pg/mL C-Reactive Protein < 0.2 (0.0-0.9) mg/dL Total Protein 7.3 (6.4-8.2) g/dL Albumin 4.1 (3.4-5.0) g/dL Globulin 3.2 Albumin/Globulin Ratio 1.3 TSH, Ultra Sensitive 1.43 (0.36-3.74) uIU/mL Ethyl Alcohol 77 (0) mg/dL Meds: Medications Generic Name Dose Route Start Last Admin Trade Name Freq PRN Reason Stop Dose Admin Sodium Chloride 10 ml 04/23/21 11:38 04/23/21 12:40 Sodium Chloride 0.9% 10 Ml Syringe FLUSH 10 ml ASDIRECTED PRN Administration Keep Vein Open Discontinued Medications Generic Name Dose Route Start Last Admin Trade Name Freq PRN Reason Stop Dose Admin Hydrocodone Bitart/Acetaminophen 1 tab 04/23/21 12:39 04/23/21 12:50 Acetaminophen/Hydrocodone 325-5 Mg Tab PO 04/23/21 12:40 1 tab ONETIME ONE Administration Hydromorphone HCl 0.5 mg 04/23/21 12:20 04/23/21 12:58 Hydromorphone 0.5 Mg/0.5 Ml Syringe IVPUSH 04/23/21 12:21 Not Given ONETIME ONE Ketorolac Tromethamine 30 mg 04/23/21 12:40 04/23/21 12:51 Ketorolac 30 Mg/Ml Sdv IM 04/23/21 12:41 30 mg ONETIME ONE Administration - Re-Assessments/Exams Free Text/Narrative Re-Assessment/Exam: 04/23/21 13:11 I have discussed the labs, exam and xray with the pt and explained the fracture of his 8th rib. I explained no cause of his syncope could be determined. I instructed hi to follow up with his PCP next week regarding his syncope and rib fracture. 04/23/21 13:12 The pt reports getting up 4+ times a night for nocturia due to BPH. I will provide an RX for low dose Cialis to see if that improves his nocturia. Departure - Departure Time of Disposition: 13:13 Disposition: Home, Self-Care 01 Condition: Fair Clinical Impression: Rib fracture Qualifiers: Encounter type: initial encounter Rib fracture type: single rib Fracture type: closed Laterality: left Qualified Code(s): S22.32XA - Fracture of one rib, left side, initial encounter for closed fracture Syncope Qualifiers: Syncope type: unspecified Qualified Code(s): R55 - Syncope and collapse - Discharge Information *PRESCRIPTION DRUG MONITORING PROGRAM REVIEWED*: Not Applicable *COPY OF PRESCRIPTION DRUG MONITORING REPORT IN PATIENT BIPIN: Not Applicable Instructions: Syncope, [id number], Rib Fracture, [id number] Forms: ED Department Discharge Additional Instructions: RX: Cialis Use Tylenol and Ibuprofen for pain as needed. Follow up with your [facility] next week regarding your ER visit today, rib fracture and passing out episode. If any new symptoms or concerns develop contact your primary care facility or return to the ER. Sepsis Event Note (ED) - Evaluation Sepsis Screening Result: No Definite Risk - Focused Exam Vital Signs: Vital Signs Temp Pulse Resp BP Pulse Ox 04/23/21 11:41 97.9 F 93 20 161/111 H 95 - My Orders Last 24 Hours: My Active Orders 04/23/21 11:38 EKG Documentation Completion [RC] STAT Sodium Chloride 0.9% [Saline Flush] 10 ml FLUSH ASDIRECTED PRN Peripheral IV Insertion Adult [OM.PC] Routine 04/23/21 11:39 Peripheral IV Care [RC] . DIRECTED UA RFX MARK AND CULT IF INDIC [URIN] Stat - Assessment/Plan Last 24 Hours: My Active Orders 04/23/21 11:38 EKG Documentation Completion [RC] STAT Sodium Chloride 0.9% [Saline Flush] 10 ml FLUSH ASDIRECTED PRN Peripheral IV Insertion Adult [OM.PC] Routine 04/23/21 11:39 Peripheral IV Care [RC] . DIRECTED UA RFX MARK AND CULT IF INDIC [URIN] Stat
[2021-04-23] MEDS ORDERED: HYDROmorphone 0.5 MG/0.5 ML Syringe IVPUSH ONE (12:20)
[2021-04-23 12:32] LABS: ANION GAP 10.6 mEq/L (7-13); CHLORIDE,CL 100 mmol/L (98-107); SODIUM,NA 132 mmol/L (136-145)
[2021-04-23] MEDS ORDERED: Acetaminophen/HYDROcodone 325-5 MG Tab PO ONE (12:39)
[2021-04-23] MEDS ORDERED: Ketorolac 30 MG/ML SDV IM ONE (12:40)
--- NOTE | 2021-04-23 12:47 | CR ---
PROCEDURE INFORMATION: Exam: XR Left Ribs with PA Chest Exam date and time: 04/23/2021 11:59 AM Age: 70 years old Clinical indication: Injury or trauma; Fall; Rib area, left side; Blunt trauma; Injury date: 04/23/2021; Injury details: Left rib pain lower; Patient HX: Patient has a history of prior fractures of the ribs 3 years ago. ; Additional info: Fell L rib pain TECHNIQUE: Imaging protocol: XR Left ribs with PA chest. Views: 3 views COMPARISON: CT Chest wo Cont 05/04/2018 1:12 AM FINDINGS: Lungs: Mild left basilar atelectasis and possible small left pleural effusion. No pneumothorax. Pleural spaces: See "Lungs" finding. Heart/Mediastinum: Unremarkable. No cardiomegaly. Bones/joints: Acute fracture of the left lateral 8th rib. IMPRESSION: Acute fracture of the left 8th rib.
== END 2021-04-23 13:49 | disposition home or self-care (01) ==
LOC: DL.ED 11:31
DX: R55 Syncope and collapse (principal); S22.32XA Fracture of one rib, left side, initial encounter for closed fracture; I44.0 Atrioventricular block, first degree; E78.00 Pure hypercholesterolemia, unspecified; N40.0 Benign prostatic hyperplasia without lower urinary tract symptoms; E11.9 Type 2 diabetes mellitus without complications; Z88.0 Allergy status to penicillin; Z88.1 Allergy status to other antibiotic agents; Z79.899 Other long term (current) drug therapy; W18.30XA Fall on same level, unspecified, initial encounter; Y92.002 Bathroom of unspecified non-institutional (private) residence as the place of occurrence of the external cause
CPT/HCPCS: 36415; 71101; 80053; 80307; 83735; 84443; 84484; 85025; 86140; 96372; 99284; A9270; J1885

== ENCOUNTER 2023-01-14 14:38 | Inpatient (IN) | payer MEDICARE, BC ==
[2023-01-14] MEDS ORDERED: hydrOXYzine HCl 10 MG Tab PO PRN (16:27)
[2023-01-14] MEDS ORDERED: Acetaminophen 650 MG Supp RECTAL PRN (16:28)
[2023-01-14] MEDS ORDERED: Ondansetron 4 MG Tab.DIS PO PRN (16:28)
[2023-01-14] MEDS ORDERED: Morphine 10 MG/0.5 ML Oral Syringe PO PRN (16:28)
[2023-01-14] MEDS ORDERED: Ondansetron 4 MG/2 ML SDV IVPUSH PRN (16:28)
[2023-01-14] MEDS ORDERED: Acetaminophen 325 MG Tab PO PRN (16:28)
[2023-01-14] MEDS ORDERED: LORazepam 1 MG Tab PO PRN (16:28)
[2023-01-14] MEDS ORDERED: Sennosides/Docusate Sodium 50-8.6 MG Tab PO PRN (16:28)
[2023-01-14] MEDS ORDERED: diphenhydrAMINE 50 MG/ML SDV IVPUSH PRN (18:15)
[2023-01-14] MEDS ORDERED: fentaNYL 25 MCG/HR Transdermal Patch TRDERM SCH (19:00)
[2023-01-14] MEDS: Morphine 2 MG/ML SYRINGE IV PRN ×2 (20:38→23:29)
[2023-01-15] MEDS: LORazepam 2 MG/ML SDV IVPUSH PRN ×2 (03:54→18:34)
[2023-01-15] MEDS: Morphine 2 MG/ML SYRINGE IVPUSH PRN ×2 (13:31→16:37)
== END 2023-01-15 20:00 | disposition expired | DRG 951 ==
LOC: DL.MS 16:25
PROVIDERS: ADMIT Hospitalist; ATTEND Hospitalist
DX: Z51.5 Encounter for palliative care (principal); C78.7 Secondary malignant neoplasm of liver and intrahepatic bile duct; C78.89 Secondary malignant neoplasm of other digestive organs; C80.1 Malignant (primary) neoplasm, unspecified; Z66 Do not resuscitate; K21.9 Gastro-esophageal reflux disease without esophagitis; E11.9 Type 2 diabetes mellitus without complications; N40.0 Benign prostatic hyperplasia without lower urinary tract symptoms; E78.00 Pure hypercholesterolemia, unspecified; H91.90 Unspecified hearing loss, unspecified ear; L29.9 Pruritus, unspecified; Z88.0 Allergy status to penicillin; Z86.16 Personal history of COVID-19; Z98.890 Other specified postprocedural states; Z79.899 Other long term (current) drug therapy; Z88.8 Allergy status to other drugs, medicaments and biological substances
CPT/HCPCS: A9270-GY; J2060; J2270